=== PATIENT | male | born 1940 | race Caucasian/White ===

== ENCOUNTER 2017-09-15 18:30 | Inpatient (IN) | payer MEDICARE, OTHER ==
--- NOTE | 2017-09-15 19:49 | ED Physician Chart ---
ED Chief Complaint/HPI - Patient Information Date Seen:: 09/15/17 Time Seen:: 18:35 Chief Complaint:: Agitation History of Present Illness:: onset x 2 days of agitation and hostile behavior; no report of trauma, SIs, H/As , S/T, neck pain C/P, SOB, Abd. Pain, A/N/V/D/C, fever, chills, or urinary s/s Allergies:: Allergies Allergy/AdvReac Type Severity Reaction Status Date / Time No Known Allergies Allergy Verified 09/15/17 18:36 Vitals:: Vital Signs - 8 hr 09/15/17 18:36 Temp 97.4 F HR 81 RR 18 BP 130/60 O2 Sat % 100 Historian:: Patient, EMS Review:: Nurse's Note Reviewed, Old Chart Reviewed, EMS run form Reviewed ED Review of Systems - Review of Systems General/Constitutional: No fever, No chills, No weight loss, No weakness, No diaphoresis, No edema, No loss of appetite Skin: No skin lesions, No rash, No bruising Head: No headache, No light-headedness Eyes: No loss of vision, No pain, No diplopia ENT: No earache, No nasal drainage, No sore throat, No tinnitus Neck: No neck pain, No swelling, No thyromegaly, No stiffness, No mass noted Cardio Vascular: No chest pain, No palpitations, No PND, No orthopnea, No edema Pulmonary: No SOB, No cough, No sputum, No wheezing GI: No nausea, No vomiting, No diarrhea, No pain, No melena, No hematochezia, No constipation, No hematemesis G/U: No dysuria, No frequency, No hematuria Musculoskeletal: No bone or joint pain, No back pain, No muscle pain Endocrine: No polyuria, No polydipsia Psychiatric: Prior psych history, No depression, No suicidal ideation, No homicidal ideation, No auditory hallucination, No visual hallucination Hematopoietic: No bruising, No lymphadenopathy Allergic/Immuno: No urticaria, No angioedema Neurological: No syncope, Focal symptoms, No weakness, No paresthesia, No headache, No seizure, No dizziness, No confusion, No vertigo ED Past Medical History - Past Medical History Obtainable: Yes Past Medical History: HTN, CAD, CVA/TIA, Dyslipidemia Family History: HTN Social History: Non Smoker, No Alcohol, No Drug Use, Single, Care Facility Surgical History: None Psychiatricy History: Bipolar Medication: Reviewed Family Medical History - Family Member Mother History Unknown: Yes ED Physical Exam - Physical Examination General/Constitutional: Awake, Well-developed, well-nourished, Alert, No distress, GCS 15, Non-toxic appearing, Ambulatory Head: Atraumatic Eyes: Lids, conjuctiva normal, PERRL, EOMI Skin: Nl inspection, No rash, No skin lesions, No ecchymosis, Well hydrated, No lymphadenopathy ENMT: External ears, nose nl, TM canals nl, Nasal exam nl, Lips, teeth, gums nl , Oropharynx nl, Tonsils nl Neck: Nontender, Full ROM w/o pain, No JVD, No nuchal rigidity, No bruit, No mass, No stridor Respiratory: Nl effort/Exclusion, Clear to Auscultation, No Wheeze/Rhonchi/Rales Cardio Vascular: RRR, No murmur, gallop, rubs, NL S1 S2, Carotid/Femoral/Distal pulses equal bilaterally GI: No tenderness/rebounding/guarding, No organomegaly, No hernia, Normal BS's, Nondistended, No mass/bruits, No McBurney tenderness : No CVA tenderness Extremities: No tenderness or effusion, Full ROM, normal strength in all extremities, No edema, Normal digits & nails Neuro/Psych: Alert/oriented, DTR's symmetric, Normal sensory exam, Normal motor strength, Judgement/insight normal, Mood normal, Normal gait, No focal deficits Other Neuro/Psych comments:: + Psychomotor Agitation; Mood/Affect; Labile; no SIs Misc: Normal back, No paraspinal tenderness ED Labs/Radiology/EKG Results - Lab Results Comments:: unremarkable - EKG Interpretations EKG Time:: 19:41 Rate & Rhythm: 86; NSR Comments:: non-specific st-t changes ED Septic Shock - . Is Septic Shock (SBP<90, OR Lactate>4 mmol\L) present?: No - <6hrs of presentation: Vital Signs: Vital Signs - 8 hr 09/15/17 18:36 Temp 97.4 F HR 81 RR 18 BP 130/60 O2 Sat % 100 ED Reassessment (Disposition) - Reassessment Reassessment Condition:: Improved - Diagnosis Diagnosis:: Medical Clearance; Agitation; Bipolar Disorder; Psychosis - Aftercare/Follow up Instructions Aftercare/Follow-Up Instructions:: Counseled pt regarding lab results/diagnosis & need follow up, Counseled pt & family regarding lab results/diagnosis & need follow up - Patient Disposition Discharge/Transfer:: Acute Care w/in this hosp Admitted to:: [facility] Condition at Disposition:: Stable, Improved ED Discharge Plan - Patient Disposition
[2017-09-15 20:05] LABS: % BASOPHILS 0.9 % (0.0-2.0); % EOSINOPHILS 2.6 % (0.0-5.0); % LYMPHOCYTES 35.2 % (20.0-50.0); % MONOCYTES 5.3 % (2.0-10.0); BASOPHILE ABSOLUTE 0.1 Th/cumm (0-0.2); EOSINOPHILE ABSOLUTE 0.3 Th/cmm (0.1-0.4); HEMATOCRIT 40.1 % (41.0-60); HEMOGLOBIN 13.5 gm/dL (12-16); MEAN CELL VOLUME 95.2 fl (80-99); MEAN CORPUSCULAR HGB CONC 33.6 pg (28.0-36.0); MEAN PLATELET VOLUME 7.7 fl; MONOCYTE ABSOLUTE 0.6 Th/cmm (0.3-1.0); NEUTROPHILE ABSOLUTE 6.4 Th/cmm (1.8-8.0); PLATELET COUNT 246 Th/cmm (150-400); RED BLOOD COUNT 4.21 Mil/cmm (3.80-5.80); RED CELL DISTRIBUTION WIDTH 13.5 % (11.5-20.0); WHITE BLOOD COUNT 11.4 Th/cmm (4.8-10.8)
[2017-09-15 20:17] LABS: ACETAMINOPHEN < 10.0 ug/mL (10.0-30.0); ALB/GLOB RATIO 1.1 (1.0-1.8); ALBUMIN 3.9 gm/dL (4.2-5.5); ALKALINE PHOSPHATASE 155 U/L (34-104); ANION GAP 11.5 (7.0-16.0); BILIRUBIN,TOTAL 0.5 mg/dL (0.3-1.0); BUN - UREA NITROGEN 23 mg/dL (7-25); CALCIUM SERUM 9.9 mg/dL (8.6-10.3); CHLORIDE 103 mEq/L (98-107); CHOLESTEROL 160 mg/dL (<200); CREATININE - SERUM 1.2 mg/dL (0.7-1.3); GLUCOSE 153 mg/dL (70-105); HDL -HIGH DENSITY LIPOPROTEIN 42 mg/dL (23-92); POTASSIUM SERUM 4.5 mEq/L (3.5-5.1); SALICYLATES (ASPIRIN) < 25.0 mg/L (30.0-100.0); SGOT 18 U/L (13-39); SGPT/ALT 17 U/L (7-52); SODIUM SERUM 136 mEq/L (136-145); TOTAL PROTEIN,SERUM 7.4 gm/dL (6.0-8.3); TRIGLYCERIDES 111 mg/dL (<150)
[2017-09-15 21:09] VITALS: BP 130/60
[2017-09-15] MEDS ORDERED: Maalox 30 mL Cup PO PRN (21:10)
[2017-09-15] MEDS ORDERED: Magnesium Hydroxide (MOM) 30 mL UDC PO PRN (21:10)
[2017-09-16 00:25] LABS: URINE MICROSCOPIC INDICATED? YES; URINE SOURCE CLEAN C
[2017-09-16 01:31] LABS: URINE BILIRUBIN NEGATIVE (NEGATIVE); URINE BLOOD NEGATIVE (NEGATIVE); URINE GLUCOSE (UA) 100 mg/dL (NEGATIVE); URINE KETONE NEGATIVE (NEGATIVE); URINE LEUKOCYTE ESTERASE SMALL (NEGATIVE); URINE NITRATE NEGATIVE (NEGATIVE); URINE PH 7.5 (4.6 - 8.0); URINE PROTEIN NEGATIVE (NEGATIVE); URINE UROBILINOGEN 0.2 E.U./dL (0.2 - 1.0)
[2017-09-16 01:45] LABS: URINE CLARITY CLEAR (CLEAR); URINE COLOR YELLOW
[2017-09-16 01:47] LABS: AMPHETAMINE URINE NEGATIVE (NEGATIVE); BARBITURATES URINE NEGATIVE (NEGATIVE); BENZODIAZEPINES QUAL URINE NEGATIVE (NEGATIVE); CANNABINOID THC NEGATIVE (NEGATIVE); COCAINE METABOLITE QUAL URINE NEGATIVE (NEGATIVE); METHADONE URINE NEGATIVE (NEGATIVE); METHAMPHETAMINES QUAL URINE NEGATIVE (NEGATIVE); OPIATES (MORPHINE) QUAL. URINE NEGATIVE (NEGATIVE); PHENCYCLIDINE (PCP) URINE NEGATIVE (NEGATIVE); TRICYCLICS (TCA) QUAL. URINE NEGATIVE (NEGATIVE)
[2017-09-16 01:51] LABS: URINE EPITHELIAL CELLS OCCASIONAL /lpf (FEW); URINE RBC 0-2 /hpf (0-5)
[2017-09-16 01:52] LABS: URINE BACTERIA OCCASIONAL /hpf (NONE SEEN)
[2017-09-16] MEDS ORDERED: Hydrocodone/APAP 5mg/325mg Tab PO PRN (05:40)
[2017-09-16] MEDS ORDERED: Magnesium Hydroxide (MOM) 30 mL UDC PO PRN (05:40)
[2017-09-16] MEDS ORDERED: Polyvinyl Alcohol Ophth Soln 15 mL Bottle EACH EYE PRN (05:50)
[2017-09-16] MEDS: INSULIN ASPART SLIDING SCALE 100 UNITS/ML UNIT SUBQ SCH ×4 (06:46→21:56)
[2017-09-16] MEDS ORDERED: Non-Formulary Item 1 EA (Amino Acids/Protein Hydrolys [Pro-Stat Sugar Free Liquid] 30 ML) PO SCH (09:00)
[2017-09-16] MEDS: Multivitamin Tab PO SCH (09:05)
[2017-09-16] MEDS: Insulin Detemir 100 units/mL 10mL Vial SUBQ SCH (09:30)
[2017-09-16] MEDS ORDERED: ACETAMINOPHEN 500 MG PO PRN (13:34)
[2017-09-16] MEDS ORDERED: INSULIN ASPART, RECOMBINANT 100 UNITS/ML SUBQ SCH (15:30)
--- NOTE | 2017-09-16 16:35 | Internal Medicine Prog Note ---
Internal Medicine Subjective - Subjective Service Date: 09/16/17 ([facility] [id number]) Internal Medicine Objective - Results Result Diagrams: 09/15/17 19:55 09/15/17 19:55 Recent Labs: Laboratory Last Values WBC 11.4 Th/cmm (4.8-10.8) H 09/15/17 19:55 RBC 4.21 Mil/cmm (3.80-5.80) 09/15/17 19:55 Hgb 13.5 gm/dL (12-16) 09/15/17 19:55 Hct 40.1 % (41.0-60) L 09/15/17 19:55 MCV 95.2 fl (80-99) 09/15/17 19:55 MCH 32.0 pg (27.0-31.0) H 09/15/17 19:55 MCHC Differential 33.6 pg (28.0-36.0) 09/15/17 19:55 RDW 13.5 % (11.5-20.0) 09/15/17 19:55 Plt Count 246 Th/cmm (150-400) 09/15/17 19:55 MPV 7.7 fl 09/15/17 19:55 Neutrophils % 56.0 % (40.0-80.0) 09/15/17 19:55 Lymphocytes % 35.2 % (20.0-50.0) 09/15/17 19:55 Monocytes % 5.3 % (2.0-10.0) 09/15/17 19:55 Eosinophils % 2.6 % (0.0-5.0) 09/15/17 19:55 Basophils % 0.9 % (0.0-2.0) 09/15/17 19:55 Sodium 136 mEq/L (136-145) 09/15/17 19:55 Potassium 4.5 mEq/L (3.5-5.1) 09/15/17 19:55 Chloride 103 mEq/L (98-107) 09/15/17 19:55 Carbon Dioxide 26.0 mEq/L (21.0-31.0) 09/15/17 19:55 Anion Gap 11.5 (7.0-16.0) 09/15/17 19:55 BUN 23 mg/dL (7-25) 09/15/17 19:55 Creatinine 1.2 mg/dL (0.7-1.3) 09/15/17 19:55 Est GFR ( Amer) TNP 09/15/17 19:55 Est GFR (Non-Af Amer) TNP 09/15/17 19:55 BUN/Creatinine Ratio 19.2 09/15/17 19:55 Glucose 153 mg/dL (70-105) H 09/15/17 19:55 Calcium 9.9 mg/dL (8.6-10.3) 09/15/17 19:55 Total Bilirubin 0.5 mg/dL (0.3-1.0) 09/15/17 19:55 AST 18 U/L (13-39) 09/15/17 19:55 ALT 17 U/L (7-52) 09/15/17 19:55 Alkaline Phosphatase 155 U/L (34-104) H 09/15/17 19:55 Total Protein 7.4 gm/dL (6.0-8.3) 09/15/17 19:55 Albumin 3.9 gm/dL (4.2-5.5) L 09/15/17 19:55 Globulin 3.5 gm/dL 09/15/17 19:55 Albumin/Globulin Ratio 1.1 (1.0-1.8) 09/15/17 19:55 Triglycerides 111 mg/dL (<150) 09/15/17 19:55 Cholesterol 160 mg/dL (<200) 09/15/17 19:55 LDL Cholesterol Direct 116 mg/dL (75-193) 09/15/17 19:55 HDL Cholesterol 42 mg/dL (23-92) 09/15/17 19:55 TSH 11.98 uIU/ml (0.34-5.60) H 09/15/17 19:55 Urine Source CLEAN C 09/16/17 00:15 Urine Color YELLOW 09/16/17 00:15 Urine Clarity CLEAR (CLEAR) 09/16/17 00:15 Urine pH 7.5 (4.6 - 8.0) 09/16/17 00:15 Ur Specific [place] 1.010 (1.005-1.030) 09/16/17 00:15 Urine Protein NEGATIVE mg/dL (NEGATIVE) 09/16/17 00:15 Urine Glucose (UA) 100 mg/dL (NEGATIVE) H 09/16/17 00:15 Urine Ketones NEGATIVE mg/dL (NEGATIVE) 09/16/17 00:15 Urine Blood NEGATIVE (NEGATIVE) 09/16/17 00:15 Urine Nitrate NEGATIVE (NEGATIVE) 09/16/17 00:15 Urine Bilirubin NEGATIVE (NEGATIVE) 09/16/17 00:15 Urine Urobilinogen 0.2 E.U./dL (0.2 - 1.0) 09/16/17 00:15 Ur Leukocyte Esterase SMALL (NEGATIVE) H 09/16/17 00:15 Urine RBC 0-2 /hpf (0-5) H 09/16/17 00:15 Urine WBC 2-5 /hpf (0-5) 09/16/17 00:15 Ur Epithelial Cells OCCASIONAL /lpf (FEW) 09/16/17 00:15 Urine Bacteria OCCASIONAL /hpf (NONE SEEN) 09/16/17 00:15 Salicylates < 25.0 mg/L (30.0-100.0) L 09/15/17 19:55 Urine Opiates Screen NEGATIVE (NEGATIVE) 09/16/17 00:15 Urine Methadone Screen NEGATIVE (NEGATIVE) 09/16/17 00:15 Acetaminophen < 10.0 ug/mL (10.0-30.0) L 09/15/17 19:55 Ur Barbiturates Screen NEGATIVE (NEGATIVE) 09/16/17 00:15 Ur Tricyclics Screen NEGATIVE (NEGATIVE) 09/16/17 00:15 Ur Phencyclidine Scrn NEGATIVE (NEGATIVE) 09/16/17 00:15 Amphetamines Screen NEGATIVE (NEGATIVE) 09/16/17 00:15 U Methamphetamines Scrn NEGATIVE (NEGATIVE) 09/16/17 00:15 U Benzodiazepines Scrn NEGATIVE (NEGATIVE) 09/16/17 00:15 U Cocaine Metab Screen NEGATIVE (NEGATIVE) 09/16/17 00:15 U Cannabinoids Screen NEGATIVE (NEGATIVE) 09/16/17 00:15 Ethyl Alcohol < 10 mg/dL (0-10) 09/15/17 19:55 - Physical Exam Vitals and I&O: Vital Signs Temp 98.2 F 09/16/17 15:51 Pulse 85 09/16/17 15:51 Resp 17 09/16/17 15:51 BP 93/49 09/16/17 15:51 Pulse Ox 97 09/16/17 15:51 Intake & Output 09/15/17 09/16/17 09/16/17 18:59 06:59 18:59 Intake Total 240 Balance 240 Intake: Oral 240 Other: # Voids 1 Active Medications: Current Medications Acetaminophen (Tylenol) 650 mg PO Q4HR PRN PRN Reason: Mild Pain / Temp above 100 Stop: 11/14/17 21:09 Acetaminophen/Hydrocodone Bitart ([place] 5mg/325mg) 1 tab PO Q4H PRN PRN Reason: MOD/SEVERE PAIN Stop: 11/15/17 05:39 Al Hydrox/Mg Hydrox/Simethicone (Maalox) 30 ml PO Q4HR PRN PRN Reason: GI DISTRESS Stop: 11/14/17 21:09 Artificial Tears (Artificial Tears Ophth Soln) 1 drop EACH EYE TID PRN PRN Reason: DRYNESS Stop: 11/15/17 05:49 Ascorbic Acid (Vitamin C) 500 mg PO BID [facility] Stop: 11/15/17 08:59 Last Admin: 09/16/17 09:06 Dose: 500 mg Bisacodyl (Dulcolax 10 Mg Supp) 10 mg RC DAILY PRN PRN Reason: IF MOM IS INEFFECTIVE Stop: 11/15/17 13:33 Docusate Sodium (Colace) 100 mg PO BID [facility] Stop: 11/15/17 08:59 Last Admin: 09/16/17 09:06 Dose: 100 mg Glipizide (Glucotrol) 5 mg PO DAILY [facility] Stop: 11/15/17 08:59 Last Admin: 09/16/17 09:05 Dose: 5 mg Insulin Aspart (Novolog Insulin Sliding Scale) 0 units SUBQ ACHS [facility] PRN Reason: Protocol Stop: 11/15/17 07:29 Last Admin: 09/16/17 12:09 Dose: 6 units Insulin Aspart (Novolog) 10 units SUBQ BID [facility] PRN Reason: Protocol Stop: 11/15/17 15:29 Insulin Detemir (Levemir Insulin) 20 units SUBQ DAILY [facility] PRN Reason: Protocol Stop: 11/15/17 08:59 Last Admin: 09/16/17 09:30 Dose: 20 ud Lorazepam (Ativan) 0.5 mg PO Q4HR PRN; Protocol PRN Reason: Anxiety/agitation Stop: 10/15/17 21:09 Magnesium Hydroxide (Milk Of Magnesia) 30 ml PO HS PRN PRN Reason: Constipation Magnesium Hydroxide (Milk Of Magnesia) 30 ml PO DAILY PRN PRN Reason: BOWEL MAINTENANCE Stop: 11/15/17 05:39 Metformin HCl (Glucophage) 500 mg PO BID [facility] Stop: 11/15/17 08:59 Last Admin: 09/16/17 09:06 Dose: 500 mg Multivitamins/Vitamin C (Theragran) 1 tab PO DAILY [facility] Stop: 11/15/17 08:59 Last Admin: 09/16/17 09:05 Dose: 1 tab Rivaroxaban (Xarelto) 20 mg PO DAILY [facility] Stop: 11/15/17 08:59 Last Admin: 09/16/17 09:06 Dose: 20 mg Zolpidem Tartrate (Ambien) 5 mg PO HS PRN PRN Reason: Insomnia Stop: 11/14/17 21:09
[2017-09-16] MEDS: INSULIN ASPART, RECOMBINANT 100 UNITS/ML SUBQ SCH (17:37)
--- NOTE | 2017-09-16 19:02 | History & Physical ---
ADMIT DATE: 09/16/2017 DICTATED FOR: Bao Vogel DO CHIEF COMPLAINT: Agitation. HISTORY OF PRESENT ILLNESS: This is a 77-year-old male who is a custodial resident who is now admitted to the Geropsych Unit due to a 2-day history of agitation, hostile behavior towards nursing staff. PAST MEDICAL HISTORY: Hypertension, CAD, history of CVA, dyslipidemia. FAMILY HISTORY: Noncontributory. SOCIAL HISTORY: The patient is a custodial resident, requiring 24-hour nursing care. SURGICAL HISTORY: Unknown. MEDICATIONS: Please see medication reconciliation. REVIEW OF SYSTEMS: GENERAL: Denies any fevers or any chills. CARDIOVASCULAR: Denies chest pain. RESPIRATORY: Denies shortness of breath. GASTROINTESTINAL: Denies nausea, vomiting, abdominal pain. GENITOURINARY: Denies increased frequency or dysuria. NEUROLOGIC: No headaches, seizures or syncope. All other systems are reviewed and are negative. PHYSICAL EXAMINATION: GENERAL: The patient is well developed, well nourished, no acute distress. VITAL SIGNS: Temperature 99.2, heart rate 85, blood pressure 93/49, respirations 17, O2 97%. HEENT: Head normocephalic, atraumatic. NECK: Supple. No mass. LUNGS: Clear bilaterally. CARDIOVASCULAR: Regular rate and rhythm. ABDOMEN: Soft, nontender. LABORATORY DATA: WBC 11.4, H and H 13.5 and 40.1, platelet of 246. Sodium 136, potassium 4.5, chloride 103, BUN 22, creatinine 1.2. The patient had a urinalysis done, positive for UTI. ASSESSMENT: Acute UTI, hypertension, CAD, history of TIA. PLAN: We will start the patient on Levaquin 500 mg p.o. for his UTI. We will monitor the patient's glucose level. We will continue to monitor this patient. JOB# [id number]
[2017-09-16 20:06] LABS: A1C % 8.8 % (4.0-6.0)
--- NOTE | 2017-09-17 05:57 | Psychosocial Evaluation ---
DATE OF SERVICE: 09/16/2017 IDENTIFYING DATA: The patient is a 77-year-old male, resident of [facility]. Information obtained directly interviewing the patient as well as reviewing the admission papers and they are reliable. JUSTIFICATION FOR HOSPITALIZATION: The patient is admitted on a voluntary basis in view of his agitation and confusion. CHIEF COMPLAINT: "I do not know why they have to bring me in here." HISTORY OF PRESENT ILLNESS: This is the first psychiatric hospitalization to [facility] for this patient, who has been getting easily agitated and when I am asking the questions, the patient has been reported to have been this way at the [facility] and could not be taken care of at a lower level of care and hence patient has to be transferred over here. We tried to interview the patient to get more information, but the patient is not providing any and has been getting easily frustrated. PAST PSYCHIATRIC HISTORY: Details are not known. MEDICAL HISTORY AND PHYSICAL EXAMINATION: Requested to be done by Dr. Vogel. SUBSTANCE ABUSE HISTORY: None. ABUSE HISTORY: None. PROBLEMS WITH ALCOHOL: None reported. MENTAL STATUS EXAMINATION: The patient is a 77-year-old, looking his stated age, superficially cooperative. Eye contact is poor. Mood is irritable. Affect is constricted. Insight and judgment at this time are noted to be still impaired. Impulse control is very poor. Coping skills are noted to be very poor. The patient is getting easily agitated. The patient has paranoia, but denies any command hallucinations. The patient's short term as well as long-term memory are noted to be impaired at this time. The patient has been having difficult time to cope with the stress. The patient's behavior is a danger to self and others. DIAGNOSTIC IMPRESSION: AXIS I: Dementia and behavioral disturbances, secondary trait. IMMEDIATE TREATMENT PLAN: The patient is going to be continued on Ativan and Seroquel. ESTIMATED LENGTH OF STAY: Three to five days. DISCHARGE CRITERIA: When he no longer a threat to self or others and be able to cope up with the stress. JOB# [id number]
[2017-09-17] MEDS: INSULIN ASPART SLIDING SCALE 100 UNITS/ML UNIT SUBQ SCH ×4 (06:38→20:42)
[2017-09-17] MEDS: Multivitamin Tab PO SCH (08:57)
[2017-09-17] MEDS: INSULIN ASPART, RECOMBINANT 100 UNITS/ML SUBQ SCH ×2 (09:30→17:00)
[2017-09-17] MEDS: Insulin Detemir 100 units/mL 10mL Vial SUBQ SCH (09:30)
--- NOTE | 2017-09-17 13:55 | Internal Medicine Prog Note ---
Internal Medicine Subjective - Subjective Service Date: 09/17/17 Patient seen and examined:: with staff Patient is:: awake, verbal Per staff patient has:: tolerating meds Internal Medicine Objective - Results Result Diagrams: 09/15/17 19:55 09/15/17 19:55 Recent Labs: Laboratory Last Values WBC 11.4 Th/cmm (4.8-10.8) H 09/15/17 19:55 RBC 4.21 Mil/cmm (3.80-5.80) 09/15/17 19:55 Hgb 13.5 gm/dL (12-16) 09/15/17 19:55 Hct 40.1 % (41.0-60) L 09/15/17 19:55 MCV 95.2 fl (80-99) 09/15/17 19:55 MCH 32.0 pg (27.0-31.0) H 09/15/17 19:55 MCHC Differential 33.6 pg (28.0-36.0) 09/15/17 19:55 RDW 13.5 % (11.5-20.0) 09/15/17 19:55 Plt Count 246 Th/cmm (150-400) 09/15/17 19:55 MPV 7.7 fl 09/15/17 19:55 Neutrophils % 56.0 % (40.0-80.0) 09/15/17 19:55 Lymphocytes % 35.2 % (20.0-50.0) 09/15/17 19:55 Monocytes % 5.3 % (2.0-10.0) 09/15/17 19:55 Eosinophils % 2.6 % (0.0-5.0) 09/15/17 19:55 Basophils % 0.9 % (0.0-2.0) 09/15/17 19:55 Sodium 136 mEq/L (136-145) 09/15/17 19:55 Potassium 4.5 mEq/L (3.5-5.1) 09/15/17 19:55 Chloride 103 mEq/L (98-107) 09/15/17 19:55 Carbon Dioxide 26.0 mEq/L (21.0-31.0) 09/15/17 19:55 Anion Gap 11.5 (7.0-16.0) 09/15/17 19:55 BUN 23 mg/dL (7-25) 09/15/17 19:55 Creatinine 1.2 mg/dL (0.7-1.3) 09/15/17 19:55 Est GFR ( Amer) TNP 09/15/17 19:55 Est GFR (Non-Af Amer) TNP 09/15/17 19:55 BUN/Creatinine Ratio 19.2 09/15/17 19:55 Glucose 153 mg/dL (70-105) H 09/15/17 19:55 Hemoglobin A1c % 8.8 % (4.0-6.0) H 09/15/17 19:55 Calcium 9.9 mg/dL (8.6-10.3) 09/15/17 19:55 Total Bilirubin 0.5 mg/dL (0.3-1.0) 09/15/17 19:55 AST 18 U/L (13-39) 09/15/17 19:55 ALT 17 U/L (7-52) 09/15/17 19:55 Alkaline Phosphatase 155 U/L (34-104) H 09/15/17 19:55 Total Protein 7.4 gm/dL (6.0-8.3) 09/15/17 19:55 Albumin 3.9 gm/dL (4.2-5.5) L 09/15/17 19:55 Globulin 3.5 gm/dL 09/15/17 19:55 Albumin/Globulin Ratio 1.1 (1.0-1.8) 09/15/17 19:55 Triglycerides 111 mg/dL (<150) 09/15/17 19:55 Cholesterol 160 mg/dL (<200) 09/15/17 19:55 LDL Cholesterol Direct 116 mg/dL (75-193) 09/15/17 19:55 HDL Cholesterol 42 mg/dL (23-92) 09/15/17 19:55 TSH 11.98 uIU/ml (0.34-5.60) H 09/15/17 19:55 Urine Source CLEAN C 09/16/17 00:15 Urine Color YELLOW 09/16/17 00:15 Urine Clarity CLEAR (CLEAR) 09/16/17 00:15 Urine pH 7.5 (4.6 - 8.0) 09/16/17 00:15 Ur Specific [place] 1.010 (1.005-1.030) 09/16/17 00:15 Urine Protein NEGATIVE mg/dL (NEGATIVE) 09/16/17 00:15 Urine Glucose (UA) 100 mg/dL (NEGATIVE) H 09/16/17 00:15 Urine Ketones NEGATIVE mg/dL (NEGATIVE) 09/16/17 00:15 Urine Blood NEGATIVE (NEGATIVE) 09/16/17 00:15 Urine Nitrate NEGATIVE (NEGATIVE) 09/16/17 00:15 Urine Bilirubin NEGATIVE (NEGATIVE) 09/16/17 00:15 Urine Urobilinogen 0.2 E.U./dL (0.2 - 1.0) 09/16/17 00:15 Ur Leukocyte Esterase SMALL (NEGATIVE) H 09/16/17 00:15 Urine RBC 0-2 /hpf (0-5) H 09/16/17 00:15 Urine WBC 2-5 /hpf (0-5) 09/16/17 00:15 Ur Epithelial Cells OCCASIONAL /lpf (FEW) 09/16/17 00:15 Urine Bacteria OCCASIONAL /hpf (NONE SEEN) 09/16/17 00:15 Salicylates < 25.0 mg/L (30.0-100.0) L 09/15/17 19:55 Urine Opiates Screen NEGATIVE (NEGATIVE) 09/16/17 00:15 Urine Methadone Screen NEGATIVE (NEGATIVE) 09/16/17 00:15 Acetaminophen < 10.0 ug/mL (10.0-30.0) L 09/15/17 19:55 Ur Barbiturates Screen NEGATIVE (NEGATIVE) 09/16/17 00:15 Ur Tricyclics Screen NEGATIVE (NEGATIVE) 09/16/17 00:15 Ur Phencyclidine Scrn NEGATIVE (NEGATIVE) 09/16/17 00:15 Amphetamines Screen NEGATIVE (NEGATIVE) 09/16/17 00:15 U Methamphetamines Scrn NEGATIVE (NEGATIVE) 09/16/17 00:15 U Benzodiazepines Scrn NEGATIVE (NEGATIVE) 09/16/17 00:15 U Cocaine Metab Screen NEGATIVE (NEGATIVE) 09/16/17 00:15 U Cannabinoids Screen NEGATIVE (NEGATIVE) 09/16/17 00:15 Ethyl Alcohol < 10 mg/dL (0-10) 09/15/17 19:55 RPR NONREACTIVE (NONREACTIVE) 09/15/17 19:55 - Physical Exam Vitals and I&O: Vital Signs Temp 98.4 F 09/17/17 05:49 Pulse 89 09/17/17 05:49 Resp 20 09/17/17 05:49 BP 115/60 09/17/17 05:49 Pulse Ox 97 09/17/17 05:49 Intake & Output 09/16/17 09/17/17 09/17/17 18:59 06:59 18:59 Intake Total 960 760 Balance 960 760 Intake: Oral 960 760 Other: # Voids 3 1 # Bowel Movements 0 Stool Characteristics Soft Soft Active Medications: Current Medications Acetaminophen (Tylenol) 650 mg PO Q4HR PRN PRN Reason: Mild Pain / Temp above 100 Stop: 11/14/17 21:09 Acetaminophen/Hydrocodone Bitart ([place] [address] 5mg/325mg) 1 tab PO Q4H PRN PRN Reason: MOD/SEVERE PAIN Stop: 11/15/17 05:39 Al Hydrox/Mg Hydrox/Simethicone (Maalox) 30 ml PO Q4HR PRN PRN Reason: GI DISTRESS Stop: 11/14/17 21:09 Artificial Tears (Artificial Tears Ophth Soln) 1 drop EACH EYE TID PRN PRN Reason: DRYNESS Stop: 11/15/17 05:49 Ascorbic Acid (Vitamin C) 500 mg PO BID [facility] Stop: 11/15/17 08:59 Last Admin: 09/17/17 08:57 Dose: 500 mg Bisacodyl (Dulcolax 10 Mg Supp) 10 mg RC DAILY PRN PRN Reason: IF MOM IS INEFFECTIVE Stop: 11/15/17 13:33 Docusate Sodium (Colace) 100 mg PO BID [facility] Stop: 11/15/17 08:59 Last Admin: 09/17/17 08:57 Dose: 100 mg Glipizide (Glucotrol) 5 mg PO DAILY [facility] Stop: 11/15/17 08:59 Last Admin: 09/17/17 08:57 Dose: 5 mg Insulin Aspart (Novolog Insulin Sliding Scale) 0 units SUBQ ACHS [facility] PRN Reason: Protocol Stop: 11/15/17 07:29 Last Admin: 09/17/17 12:10 Dose: Not Given Insulin Aspart (Novolog) 10 units SUBQ BID [facility] PRN Reason: Protocol Stop: 11/15/17 15:29 Last Admin: 03/30/18 09:30 Dose: 10 ud Insulin Detemir (Levemir Insulin) 20 units SUBQ DAILY [facility] PRN Reason: Protocol Stop: 11/15/17 08:59 Last Admin: 09/17/17 09:30 Dose: 20 ud Levofloxacin (Levaquin) 500 mg PO DAILY [facility] Stop: 11/16/17 08:59 Last Admin: 09/17/17 08:57 Dose: 500 mg Lorazepam (Ativan) 0.5 mg PO Q4HR PRN; Protocol PRN Reason: Anxiety/agitation Stop: 10/15/17 21:09 Magnesium Hydroxide (Milk Of Magnesia) 30 ml PO HS PRN PRN Reason: Constipation Magnesium Hydroxide (Milk Of Magnesia) 30 ml PO DAILY PRN PRN Reason: BOWEL MAINTENANCE Stop: 11/15/17 05:39 Metformin HCl (Glucophage) 500 mg PO BID [facility] Stop: 11/15/17 08:59 Last Admin: 09/17/17 08:57 Dose: 500 mg Multivitamins/Vitamin C (Theragran) 1 tab PO DAILY [facility] Stop: 11/15/17 08:59 Last Admin: 09/17/17 08:57 Dose: 1 tab Rivaroxaban (Xarelto) 20 mg PO DAILY [facility] Stop: 11/15/17 08:59 Last Admin: 09/17/17 08:57 Dose: 20 mg Zolpidem Tartrate (Ambien) 5 mg PO HS PRN PRN Reason: Insomnia Stop: 11/14/17 21:09 General: alert HEENT: NC/AT, PERRLA Neck: Supple Lungs: CTAB Cardiovascular: RRR, Normal S1, Normal S2, without murmur Neurological: alert Internal Medicine Assmt/Plan - Assessment Assessment: acute uti htn cad hx tia - Plan Plan: continue po levaquin monitor bp continue current plan of care
[2017-09-18] MEDS: INSULIN ASPART SLIDING SCALE 100 UNITS/ML UNIT SUBQ SCH ×4 (06:40→21:04)
--- NOTE | 2017-09-18 09:05 | Progress Notes ---
DATE: 09/17/2017 PSYCHIATRIC PROGRESS NOTE SUBJECTIVE: Staff was spoken to. The patient is interviewed. Mood is noted to be irritable. Affect is constricted. The patient is reported to be sexually preoccupied and has been asking one of the female staff members to go home with him. The patient has no insight into his illness. Coping skills are noted to be very poor. Sleep and appetite are also noted to be very poor. The patient is getting easily irritable and paranoid. The patient has no clue that he is in the hospital. ASSESSMENT: The patient is still impulsive and psychotic. PLAN: To continue the patient with Seroquel, which is going to be increased to 25 mg tonight and the patient is going to be followed up with the supportive therapy. Please note that the patient is not ready to be discharged to a lower level of care at this time. JOB# [id number]
[2017-09-18] MEDS: Insulin Detemir 100 units/mL 10mL Vial SUBQ SCH (09:29)
[2017-09-18] MEDS: Multivitamin Tab PO SCH (09:30)
[2017-09-18] MEDS: INSULIN ASPART, RECOMBINANT 100 UNITS/ML SUBQ SCH ×2 (09:38→16:57)
--- NOTE | 2017-09-18 14:49 | Internal Medicine Prog Note ---
Internal Medicine Subjective - Subjective Patient seen and examined:: with staff, chart reviewed Patient is:: awake, verbal Per staff patient has:: no adverse event, no episodes of fall, noncompliant, tolerating meds Internal Medicine Objective - Results Result Diagrams: 09/15/17 19:55 09/15/17 19:55 Recent Labs: Laboratory Last Values WBC 11.4 Th/cmm (4.8-10.8) H 09/15/17 19:55 RBC 4.21 Mil/cmm (3.80-5.80) 09/15/17 19:55 Hgb 13.5 gm/dL (12-16) 09/15/17 19:55 Hct 40.1 % (41.0-60) L 09/15/17 19:55 MCV 95.2 fl (80-99) 09/15/17 19:55 MCH 32.0 pg (27.0-31.0) H 09/15/17 19:55 MCHC Differential 33.6 pg (28.0-36.0) 09/15/17 19:55 RDW 13.5 % (11.5-20.0) 09/15/17 19:55 Plt Count 246 Th/cmm (150-400) 09/15/17 19:55 MPV 7.7 fl 09/15/17 19:55 Neutrophils % 56.0 % (40.0-80.0) 09/15/17 19:55 Lymphocytes % 35.2 % (20.0-50.0) 09/15/17 19:55 Monocytes % 5.3 % (2.0-10.0) 09/15/17 19:55 Eosinophils % 2.6 % (0.0-5.0) 09/15/17 19:55 Basophils % 0.9 % (0.0-2.0) 09/15/17 19:55 Sodium 136 mEq/L (136-145) 09/15/17 19:55 Potassium 4.5 mEq/L (3.5-5.1) 09/15/17 19:55 Chloride 103 mEq/L (98-107) 09/15/17 19:55 Carbon Dioxide 26.0 mEq/L (21.0-31.0) 09/15/17 19:55 Anion Gap 11.5 (7.0-16.0) 09/15/17 19:55 BUN 23 mg/dL (7-25) 09/15/17 19:55 Creatinine 1.2 mg/dL (0.7-1.3) 09/15/17 19:55 Est GFR ( Amer) TNP 09/15/17 19:55 Est GFR (Non-Af Amer) TNP 09/15/17 19:55 BUN/Creatinine Ratio 19.2 09/15/17 19:55 Glucose 153 mg/dL (70-105) H 09/15/17 19:55 Hemoglobin A1c % 8.8 % (4.0-6.0) H 09/15/17 19:55 Calcium 9.9 mg/dL (8.6-10.3) 09/15/17 19:55 Total Bilirubin 0.5 mg/dL (0.3-1.0) 09/15/17 19:55 AST 18 U/L (13-39) 09/15/17 19:55 ALT 17 U/L (7-52) 09/15/17 19:55 Alkaline Phosphatase 155 U/L (34-104) H 09/15/17 19:55 Total Protein 7.4 gm/dL (6.0-8.3) 09/15/17 19:55 Albumin 3.9 gm/dL (4.2-5.5) L 09/15/17 19:55 Globulin 3.5 gm/dL 09/15/17 19:55 Albumin/Globulin Ratio 1.1 (1.0-1.8) 09/15/17 19:55 Triglycerides 111 mg/dL (<150) 09/15/17 19:55 Cholesterol 160 mg/dL (<200) 09/15/17 19:55 LDL Cholesterol Direct 116 mg/dL (75-193) 09/15/17 19:55 HDL Cholesterol 42 mg/dL (23-92) 09/15/17 19:55 TSH 11.98 uIU/ml (0.34-5.60) H 09/15/17 19:55 Urine Source CLEAN C 09/16/17 00:15 Urine Color YELLOW 09/16/17 00:15 Urine Clarity CLEAR (CLEAR) 09/16/17 00:15 Urine pH 7.5 (4.6 - 8.0) 09/16/17 00:15 Ur Specific [place] 1.010 (1.005-1.030) 09/16/17 00:15 Urine Protein NEGATIVE mg/dL (NEGATIVE) 09/16/17 00:15 Urine Glucose (UA) 100 mg/dL (NEGATIVE) H 09/16/17 00:15 Urine Ketones NEGATIVE mg/dL (NEGATIVE) 09/16/17 00:15 Urine Blood NEGATIVE (NEGATIVE) 09/16/17 00:15 Urine Nitrate NEGATIVE (NEGATIVE) 09/16/17 00:15 Urine Bilirubin NEGATIVE (NEGATIVE) 09/16/17 00:15 Urine Urobilinogen 0.2 E.U./dL (0.2 - 1.0) 09/16/17 00:15 Ur Leukocyte Esterase SMALL (NEGATIVE) H 09/16/17 00:15 Urine RBC 0-2 /hpf (0-5) H 09/16/17 00:15 Urine WBC 2-5 /hpf (0-5) 09/16/17 00:15 Ur Epithelial Cells OCCASIONAL /lpf (FEW) 09/16/17 00:15 Urine Bacteria OCCASIONAL /hpf (NONE SEEN) 09/16/17 00:15 Salicylates < 25.0 mg/L (30.0-100.0) L 09/15/17 19:55 Urine Opiates Screen NEGATIVE (NEGATIVE) 09/16/17 00:15 Urine Methadone Screen NEGATIVE (NEGATIVE) 09/16/17 00:15 Acetaminophen < 10.0 ug/mL (10.0-30.0) L 09/15/17 19:55 Ur Barbiturates Screen NEGATIVE (NEGATIVE) 09/16/17 00:15 Ur Tricyclics Screen NEGATIVE (NEGATIVE) 09/16/17 00:15 Ur Phencyclidine Scrn NEGATIVE (NEGATIVE) 09/16/17 00:15 Amphetamines Screen NEGATIVE (NEGATIVE) 09/16/17 00:15 U Methamphetamines Scrn NEGATIVE (NEGATIVE) 09/16/17 00:15 U Benzodiazepines Scrn NEGATIVE (NEGATIVE) 09/16/17 00:15 U Cocaine Metab Screen NEGATIVE (NEGATIVE) 09/16/17 00:15 U Cannabinoids Screen NEGATIVE (NEGATIVE) 09/16/17 00:15 Ethyl Alcohol < 10 mg/dL (0-10) 09/15/17 19:55 RPR NONREACTIVE (NONREACTIVE) 09/15/17 19:55 - Physical Exam Vitals and I&O: Vital Signs Temp 98 F 09/18/17 05:11 Pulse 103 09/18/17 05:11 Resp 18 09/18/17 08:00 BP 112/57 09/18/17 05:11 Pulse Ox 95 09/18/17 05:11 Intake & Output 09/17/17 09/18/17 09/18/17 18:59 06:59 18:59 Intake Total 1300 480 Balance 1300 480 Intake: Oral 1300 480 Other: # Voids 3 2 # Bowel Movements 1 Stool Characteristics Soft Active Medications: Current Medications Acetaminophen (Tylenol) 650 mg PO Q4HR PRN PRN Reason: Mild Pain / Temp above 100 Stop: 11/14/17 21:09 Acetaminophen/Hydrocodone Bitart ([place] 5mg/325mg) 1 tab PO Q4H PRN PRN Reason: MOD/SEVERE PAIN Stop: 11/15/17 05:39 Al Hydrox/Mg Hydrox/Simethicone (Maalox) 30 ml PO Q4HR PRN PRN Reason: GI DISTRESS Stop: 11/14/17 21:09 Artificial Tears (Artificial Tears Ophth Soln) 1 drop EACH EYE TID PRN PRN Reason: DRYNESS Stop: 11/15/17 05:49 Ascorbic Acid (Vitamin C) 500 mg PO BID [facility] Stop: 11/15/17 08:59 Last Admin: 09/18/17 09:30 Dose: 500 mg Bisacodyl (Dulcolax 10 Mg Supp) 10 mg RC DAILY PRN PRN Reason: IF MOM IS INEFFECTIVE Stop: 11/15/17 13:33 Docusate Sodium (Colace) 100 mg PO BID [facility] Stop: 11/15/17 08:59 Last Admin: 09/18/17 09:39 Dose: 100 mg Glipizide (Glucotrol) 5 mg PO DAILY [facility] Stop: 11/15/17 08:59 Last Admin: 09/18/17 09:31 Dose: 5 mg Insulin Aspart (Novolog Insulin Sliding Scale) 0 units SUBQ ACHS MERLENE PRN Reason: Protocol Stop: 11/15/17 07:29 Last Admin: 09/18/17 11:33 Dose: 4 units Insulin Aspart (Novolog) 10 units SUBQ BID MERLENE PRN Reason: Protocol Stop: 11/15/17 15:29 Last Admin: 09/18/17 09:38 Dose: 10 unit Insulin Detemir (Levemir Insulin) 20 units SUBQ DAILY MERLENE PRN Reason: Protocol Stop: 11/15/17 08:59 Last Admin: 09/18/17 09:29 Dose: 20 units Levofloxacin (Levaquin) 500 mg PO DAILY [facility] Stop: 11/16/17 08:59 Last Admin: 09/18/17 09:31 Dose: 500 mg Lorazepam (Ativan) 0.5 mg PO Q4HR PRN; Protocol PRN Reason: Anxiety/agitation Stop: 10/15/17 21:09 Last Admin: 09/17/17 20:44 Dose: 0.5 mg Magnesium Hydroxide (Milk Of Magnesia) 30 ml PO HS PRN PRN Reason: Constipation Magnesium Hydroxide (Milk Of Magnesia) 30 ml PO DAILY PRN PRN Reason: BOWEL MAINTENANCE Stop: 11/15/17 05:39 Metformin HCl (Glucophage) 500 mg PO BID [facility] Stop: 11/15/17 08:59 Last Admin: 09/18/17 09:31 Dose: 500 mg Multivitamins/Vitamin C (Theragran) 1 tab PO DAILY [facility] Stop: 11/15/17 08:59 Last Admin: 09/18/17 09:30 Dose: 1 tab Quetiapine Fumarate (Seroquel) 25 mg PO HS MERLENE PRN Reason: Protocol Stop: 11/16/17 20:59 Last Admin: 09/18/17 11:19 Dose: Not Given Rivaroxaban (Xarelto) 20 mg PO DAILY [facility] Stop: 11/15/17 08:59 Last Admin: 09/18/17 09:30 Dose: 20 mg Zolpidem Tartrate (Ambien) 5 mg PO HS PRN PRN Reason: Insomnia Stop: 11/14/17 21:09 Last Admin: 09/17/17 20:44 Dose: 5 mg General: alert HEENT: NC/AT, PERRLA Neck: Supple Lungs: CTAB Cardiovascular: RRR, Normal S1, Normal S2, without murmur Extremities: excoriation, contracture Neurological: alert, disorganized Internal Medicine Assmt/Plan - Assessment Assessment: - Assessment Assessment: acute uti htn cad hx tia - Plan Plan: continue po levaquin monitor bp continue current plan of care - Plan Plan: see orders
--- NOTE | 2017-09-18 17:31 | Progress Notes ---
DATE: 09/18/2017 SUBJECTIVE: Staff was spoken to. Patient is interviewed. Mood is noted to be elated. Affect is labile. The patient has pressured speech. Insight and judgment to be still impaired. Coping skills are noted to be poor. No side effects to medications are noted. The patient has been having difficult time to cope with the stress. ASSESSMENT: The patient is still impulsive. PLAN: To continue the patient with the supportive therapy, encouraged the patient to verbalize the concerns rather than to act out. [facility]# [id number]
[2017-09-19] MEDS: INSULIN ASPART SLIDING SCALE 100 UNITS/ML UNIT SUBQ SCH ×4 (06:31→20:52)
[2017-09-19] MEDS: Multivitamin Tab PO SCH (08:24)
[2017-09-19] MEDS: Insulin Detemir 100 units/mL 10mL Vial SUBQ SCH (08:57)
--- NOTE | 2017-09-19 17:14 | Progress Notes ---
DATE: 09/19/2017 SUBJECTIVE: Staff was spoken to. The patient is interviewed. Mood is noted to be irritable. Affect is constricted. Coping skills are noted to be poor at this time. Sleep and appetite are also noted to be poor. The patient has been sexually preoccupied and has been asking the female staff to be his wives. ASSESSMENT: The patient is still having mood swings. PLAN: To continue the patient's current medications and increase the dose on the neuroleptic and follow the patient. [facility]# [id number]
--- NOTE | 2017-09-19 21:29 | Internal Medicine Prog Note ---
Internal Medicine Subjective - Subjective Patient seen and examined:: with staff, chart reviewed Patient is:: awake, verbal Per staff patient has:: no adverse event, no episodes of fall, noncompliant, tolerating meds Internal Medicine Objective - Results Result Diagrams: 09/15/17 19:55 09/15/17 19:55 Recent Labs: Laboratory Last Values WBC 11.4 Th/cmm (4.8-10.8) H 09/15/17 19:55 RBC 4.21 Mil/cmm (3.80-5.80) 09/15/17 19:55 Hgb 13.5 gm/dL (12-16) 09/15/17 19:55 Hct 40.1 % (41.0-60) L 09/15/17 19:55 MCV 95.2 fl (80-99) 09/15/17 19:55 MCH 32.0 pg (27.0-31.0) H 09/15/17 19:55 MCHC Differential 33.6 pg (28.0-36.0) 09/15/17 19:55 RDW 13.5 % (11.5-20.0) 09/15/17 19:55 Plt Count 246 Th/cmm (150-400) 09/15/17 19:55 MPV 7.7 fl 09/15/17 19:55 Neutrophils % 56.0 % (40.0-80.0) 09/15/17 19:55 Lymphocytes % 35.2 % (20.0-50.0) 09/15/17 19:55 Monocytes % 5.3 % (2.0-10.0) 09/15/17 19:55 Eosinophils % 2.6 % (0.0-5.0) 09/15/17 19:55 Basophils % 0.9 % (0.0-2.0) 09/15/17 19:55 Sodium 136 mEq/L (136-145) 09/15/17 19:55 Potassium 4.5 mEq/L (3.5-5.1) 09/15/17 19:55 Chloride 103 mEq/L (98-107) 09/15/17 19:55 Carbon Dioxide 26.0 mEq/L (21.0-31.0) 09/15/17 19:55 Anion Gap 11.5 (7.0-16.0) 09/15/17 19:55 BUN 23 mg/dL (7-25) 09/15/17 19:55 Creatinine 1.2 mg/dL (0.7-1.3) 09/15/17 19:55 Est GFR ( Amer) TNP 09/15/17 19:55 Est GFR (Non-Af Amer) TNP 09/15/17 19:55 BUN/Creatinine Ratio 19.2 09/15/17 19:55 Glucose 153 mg/dL (70-105) H 09/15/17 19:55 Hemoglobin A1c % 8.8 % (4.0-6.0) H 09/15/17 19:55 Calcium 9.9 mg/dL (8.6-10.3) 09/15/17 19:55 Total Bilirubin 0.5 mg/dL (0.3-1.0) 09/15/17 19:55 AST 18 U/L (13-39) 09/15/17 19:55 ALT 17 U/L (7-52) 09/15/17 19:55 Alkaline Phosphatase 155 U/L (34-104) H 09/15/17 19:55 Total Protein 7.4 gm/dL (6.0-8.3) 09/15/17 19:55 Albumin 3.9 gm/dL (4.2-5.5) L 09/15/17 19:55 Globulin 3.5 gm/dL 09/15/17 19:55 Albumin/Globulin Ratio 1.1 (1.0-1.8) 09/15/17 19:55 Triglycerides 111 mg/dL (<150) 09/15/17 19:55 Cholesterol 160 mg/dL (<200) 09/15/17 19:55 LDL Cholesterol Direct 116 mg/dL (75-193) 09/15/17 19:55 HDL Cholesterol 42 mg/dL (23-92) 09/15/17 19:55 TSH 11.98 uIU/ml (0.34-5.60) H 09/15/17 19:55 Urine Source CLEAN C 09/16/17 00:15 Urine Color YELLOW 09/16/17 00:15 Urine Clarity CLEAR (CLEAR) 09/16/17 00:15 Urine pH 7.5 (4.6 - 8.0) 09/16/17 00:15 Ur Specific [place] 1.010 (1.005-1.030) 09/16/17 00:15 Urine Protein NEGATIVE mg/dL (NEGATIVE) 09/16/17 00:15 Urine Glucose (UA) 100 mg/dL (NEGATIVE) H 09/16/17 00:15 Urine Ketones NEGATIVE mg/dL (NEGATIVE) 09/16/17 00:15 Urine Blood NEGATIVE (NEGATIVE) 09/16/17 00:15 Urine Nitrate NEGATIVE (NEGATIVE) 09/16/17 00:15 Urine Bilirubin NEGATIVE (NEGATIVE) 09/16/17 00:15 Urine Urobilinogen 0.2 E.U./dL (0.2 - 1.0) 09/16/17 00:15 Ur Leukocyte Esterase SMALL (NEGATIVE) H 09/16/17 00:15 Urine RBC 0-2 /hpf (0-5) H 09/16/17 00:15 Urine WBC 2-5 /hpf (0-5) 09/16/17 00:15 Ur Epithelial Cells OCCASIONAL /lpf (FEW) 09/16/17 00:15 Urine Bacteria OCCASIONAL /hpf (NONE SEEN) 09/16/17 00:15 Salicylates < 25.0 mg/L (30.0-100.0) L 09/15/17 19:55 Urine Opiates Screen NEGATIVE (NEGATIVE) 09/16/17 00:15 Urine Methadone Screen NEGATIVE (NEGATIVE) 09/16/17 00:15 Acetaminophen < 10.0 ug/mL (10.0-30.0) L 09/15/17 19:55 Ur Barbiturates Screen NEGATIVE (NEGATIVE) 09/16/17 00:15 Ur Tricyclics Screen NEGATIVE (NEGATIVE) 09/16/17 00:15 Ur Phencyclidine Scrn NEGATIVE (NEGATIVE) 09/16/17 00:15 Amphetamines Screen NEGATIVE (NEGATIVE) 09/16/17 00:15 U Methamphetamines Scrn NEGATIVE (NEGATIVE) 09/16/17 00:15 U Benzodiazepines Scrn NEGATIVE (NEGATIVE) 09/16/17 00:15 U Cocaine Metab Screen NEGATIVE (NEGATIVE) 09/16/17 00:15 U Cannabinoids Screen NEGATIVE (NEGATIVE) 09/16/17 00:15 Ethyl Alcohol < 10 mg/dL (0-10) 09/15/17 19:55 RPR NONREACTIVE (NONREACTIVE) 09/15/17 19:55 - Physical Exam Vitals and I&O: Vital Signs Temp 97.3 F 09/19/17 20:48 Pulse 87 09/19/17 20:48 Resp 18 09/19/17 20:48 BP 111/68 09/19/17 20:48 Pulse Ox 99 09/19/17 20:48 Intake & Output 09/19/17 09/19/17 09/20/17 06:59 18:59 06:59 Intake Total 720 540 480 Balance 720 540 480 Intake: Oral 720 540 480 Other: # Voids 1 2 1 Active Medications: Current Medications Acetaminophen (Tylenol) 650 mg PO Q4HR PRN PRN Reason: Mild Pain / Temp above 100 Stop: 11/14/17 21:09 Acetaminophen/Hydrocodone Bitart ([place] 5mg/325mg) 1 tab PO Q4H PRN PRN Reason: MOD/SEVERE PAIN Stop: 11/15/17 05:39 Al Hydrox/Mg Hydrox/Simethicone (Maalox) 30 ml PO Q4HR PRN PRN Reason: GI DISTRESS Stop: 11/14/17 21:09 Artificial Tears (Artificial Tears Ophth Soln) 1 drop EACH EYE TID PRN PRN Reason: DRYNESS Stop: 11/15/17 05:49 Ascorbic Acid (Vitamin C) 500 mg PO BID [facility] Stop: 11/15/17 08:59 Last Admin: 09/19/17 17:23 Dose: 500 mg Bisacodyl (Dulcolax 10 Mg Supp) 10 mg RC DAILY PRN PRN Reason: IF MOM IS INEFFECTIVE Stop: 11/15/17 13:33 Divalproex Sodium (Depakote Dr) 125 mg PO Q12HR MERLENE PRN Reason: Protocol Stop: 11/18/17 20:59 Last Admin: 09/19/17 20:50 Dose: 125 mg Docusate Sodium (Colace) 100 mg PO BID [facility] Stop: 11/15/17 08:59 Last Admin: 09/19/17 17:23 Dose: 100 mg Glipizide (Glucotrol) 5 mg PO DAILY [facility] Stop: 11/15/17 08:59 Last Admin: 09/19/17 08:24 Dose: 5 mg Insulin Aspart (Novolog Insulin Sliding Scale) 0 units SUBQ ACHS MERLENE PRN Reason: Protocol Stop: 11/15/17 07:29 Last Admin: 09/19/17 20:52 Dose: Not Given Insulin Detemir (Levemir Insulin) 20 units SUBQ DAILY MERLENE PRN Reason: Protocol Stop: 11/15/17 08:59 Last Admin: 09/19/17 08:57 Dose: 20 units Levofloxacin (Levaquin) 500 mg PO DAILY [facility] Stop: 11/16/17 08:59 Last Admin: 09/19/17 08:24 Dose: 500 mg Lorazepam (Ativan) 0.5 mg PO Q4HR PRN; Protocol PRN Reason: Anxiety/agitation Stop: 10/15/17 21:09 Last Admin: 09/17/17 20:44 Dose: 0.5 mg Magnesium Hydroxide (Milk Of Magnesia) 30 ml PO HS PRN PRN Reason: Constipation Magnesium Hydroxide (Milk Of Magnesia) 30 ml PO DAILY PRN PRN Reason: BOWEL MAINTENANCE Stop: 11/15/17 05:39 Metformin HCl (Glucophage) 500 mg PO BID [facility] Stop: 11/15/17 08:59 Last Admin: 09/19/17 17:23 Dose: 500 mg Multivitamins/Vitamin C (Theragran) 1 tab PO DAILY [facility] Stop: 11/15/17 08:59 Last Admin: 09/19/17 08:24 Dose: 1 tab Quetiapine Fumarate (Seroquel) 25 mg PO HS MERLENE PRN Reason: Protocol Stop: 11/16/17 20:59 Last Admin: 09/19/17 20:50 Dose: 25 mg Rivaroxaban (Xarelto) 20 mg PO DAILY [facility] Stop: 11/15/17 08:59 Last Admin: 09/19/17 08:24 Dose: 20 mg Zolpidem Tartrate (Ambien) 5 mg PO HS PRN PRN Reason: Insomnia Stop: 11/14/17 21:09 Last Admin: 09/19/17 20:51 Dose: 5 mg General: alert HEENT: NC/AT, PERRLA Neck: Supple Lungs: CTAB Cardiovascular: RRR, Normal S1, Normal S2, without murmur Extremities: excoriation, contracture Neurological: alert, disorganized Internal Medicine Assmt/Plan - Assessment Assessment: - Assessment Assessment: acute uti htn cad hx tia - Plan Plan: continue po levaquin monitor bp continue current plan of care - Plan Plan: see orders
--- NOTE | 2017-09-20 00:17 | Consultation ---
DATE OF CONSULTATION: 09/17/2017 REQUESTING PHYSICIAN: Jesica Juárez M.D. TYPE OF CONSULTATION: Psychology. HISTORY OF PRESENT ILLNESS: The patient is a 77-year-old male. The patient is a resident of [facility]. The following is by review of medical record and the patient's self report. The patient is being admitted due to increased agitation and increased confusion. At the time of the interview, the patient was confused as to why he is in the hospital. The patient seems to be getting agitated during the clinical interview. The patient at times became selectively mute and was easily frustrated. The patient denied any suicidal ideation, plan, or intention. PAST MEDICAL HISTORY: Please see history and physical by Dr. Vogel. PAST PSYCHIATRIC HISTORY: Unavailable at this time. SUBSTANCE ABUSE HISTORY: None. Records unavailable. CURRENT MEDICATIONS: Please see admission medication reconciliation. ALLERGIES: No known drug allergies. PSYCHOSOCIAL HISTORY: The patient is a resident of [facility]. The patient did not answer questions about educational or occupational history or voodoo affiliation. He did not respond to questions about physical or sexual abuse or any legal issues at the time of this interview. MENTAL STATUS EXAMINATION: The patient appears to be of stated age. The patient's attitude is superficially cooperative. Eye contact is poor. Speech is rambling and loud. Mood is irritable. Affect is constricted. Thought process shows to be suspicious of the interviewer as well as the reasons for hospitalization. The patient needed cognitive redirection. The patient denied any auditory or visual hallucinations or any delusions; however, there may be some paranoid ideation present. Concentration is fair to poor. Impulse control is fair to poor. The patient did not participate in the memory assessment. Immediate memory seems intact, short term seems to be impaired, long-term memory needs to be further evaluated. The patient's behavior on the unit shows difficulty coping with stressors as well as the hospitalization. Sensorium is alert and oriented to person and place. The patient did not participate in the interpretation of proverbs. Insight is poor. Judgment is compromised. DIAGNOSTIC IMPRESSION: AXIS I: Dementia with behavioral disturbance. AXIS II: Deferred. AXIS III: Please see history and physical by Dr. Vogel. TREATMENT PLAN: The patient has been seen by Dr. Juárez for psychiatric evaluation and for the management of the patient's psychotropic medications. We will provide reality orientation and reality integration. We will provide simple de-escalation skills for the patient to verbalize his concerns. We will provide coping strategies for phase of life issues as well as stress management and anxiety reduction for the patient to increase his coping mechanisms and frustration tolerance. The patient is continued on Ativan and Seroquel per Dr. Juárez. Thank you, Dr. Juárez for this consult and the opportunity to participate with you in this patient's care. JOB# [id number] DANIEL
[2017-09-20] MEDS: INSULIN ASPART SLIDING SCALE 100 UNITS/ML UNIT SUBQ SCH ×4 (06:31→21:00)
[2017-09-20] MEDS ORDERED: Probiotic Screen MC PRN (08:45)
[2017-09-20] MEDS: Multivitamin Tab PO SCH (09:49)
[2017-09-20] MEDS: Lactobacillus Rhamnosus GG 15 Billion CFU CAP.SPRINK PO SCH (09:55)
[2017-09-20] MEDS: Insulin Detemir 100 units/mL 10mL Vial SUBQ SCH (09:55)
--- NOTE | 2017-09-20 13:21 | Internal Medicine Prog Note ---
Internal Medicine Subjective - Subjective Service Date: 09/20/17 Patient is:: awake, verbal Per staff patient has:: no adverse event, no episodes of fall, noncompliant, tolerating meds Internal Medicine Objective - Results Result Diagrams: 09/15/17 19:55 09/15/17 19:55 Recent Labs: Laboratory Last Values WBC 11.4 Th/cmm (4.8-10.8) H 09/15/17 19:55 RBC 4.21 Mil/cmm (3.80-5.80) 09/15/17 19:55 Hgb 13.5 gm/dL (12-16) 09/15/17 19:55 Hct 40.1 % (41.0-60) L 09/15/17 19:55 MCV 95.2 fl (80-99) 09/15/17 19:55 MCH 32.0 pg (27.0-31.0) H 09/15/17 19:55 MCHC Differential 33.6 pg (28.0-36.0) 09/15/17 19:55 RDW 13.5 % (11.5-20.0) 09/15/17 19:55 Plt Count 246 Th/cmm (150-400) 09/15/17 19:55 MPV 7.7 fl 09/15/17 19:55 Neutrophils % 56.0 % (40.0-80.0) 09/15/17 19:55 Lymphocytes % 35.2 % (20.0-50.0) 09/15/17 19:55 Monocytes % 5.3 % (2.0-10.0) 09/15/17 19:55 Eosinophils % 2.6 % (0.0-5.0) 09/15/17 19:55 Basophils % 0.9 % (0.0-2.0) 09/15/17 19:55 Sodium 136 mEq/L (136-145) 09/15/17 19:55 Potassium 4.5 mEq/L (3.5-5.1) 09/15/17 19:55 Chloride 103 mEq/L (98-107) 09/15/17 19:55 Carbon Dioxide 26.0 mEq/L (21.0-31.0) 09/15/17 19:55 Anion Gap 11.5 (7.0-16.0) 09/15/17 19:55 BUN 23 mg/dL (7-25) 09/15/17 19:55 Creatinine 1.2 mg/dL (0.7-1.3) 09/15/17 19:55 Est GFR ( Amer) TNP 09/15/17 19:55 Est GFR (Non-Af Amer) TNP 09/15/17 19:55 BUN/Creatinine Ratio 19.2 09/15/17 19:55 Glucose 153 mg/dL (70-105) H 09/15/17 19:55 Hemoglobin A1c % 8.8 % (4.0-6.0) H 09/15/17 19:55 Calcium 9.9 mg/dL (8.6-10.3) 09/15/17 19:55 Total Bilirubin 0.5 mg/dL (0.3-1.0) 09/15/17 19:55 AST 18 U/L (13-39) 09/15/17 19:55 ALT 17 U/L (7-52) 09/15/17 19:55 Alkaline Phosphatase 155 U/L (34-104) H 09/15/17 19:55 Total Protein 7.4 gm/dL (6.0-8.3) 09/15/17 19:55 Albumin 3.9 gm/dL (4.2-5.5) L 09/15/17 19:55 Globulin 3.5 gm/dL 09/15/17 19:55 Albumin/Globulin Ratio 1.1 (1.0-1.8) 09/15/17 19:55 Triglycerides 111 mg/dL (<150) 09/15/17 19:55 Cholesterol 160 mg/dL (<200) 09/15/17 19:55 LDL Cholesterol Direct 116 mg/dL (75-193) 09/15/17 19:55 HDL Cholesterol 42 mg/dL (23-92) 09/15/17 19:55 TSH 11.98 uIU/ml (0.34-5.60) H 09/15/17 19:55 Urine Source CLEAN C 09/16/17 00:15 Urine Color YELLOW 09/16/17 00:15 Urine Clarity CLEAR (CLEAR) 09/16/17 00:15 Urine pH 7.5 (4.6 - 8.0) 09/16/17 00:15 Ur Specific [place] 1.010 (1.005-1.030) 09/16/17 00:15 Urine Protein NEGATIVE mg/dL (NEGATIVE) 09/16/17 00:15 Urine Glucose (UA) 100 mg/dL (NEGATIVE) H 09/16/17 00:15 Urine Ketones NEGATIVE mg/dL (NEGATIVE) 09/16/17 00:15 Urine Blood NEGATIVE (NEGATIVE) 09/16/17 00:15 Urine Nitrate NEGATIVE (NEGATIVE) 09/16/17 00:15 Urine Bilirubin NEGATIVE (NEGATIVE) 09/16/17 00:15 Urine Urobilinogen 0.2 E.U./dL (0.2 - 1.0) 09/16/17 00:15 Ur Leukocyte Esterase SMALL (NEGATIVE) H 09/16/17 00:15 Urine RBC 0-2 /hpf (0-5) H 09/16/17 00:15 Urine WBC 2-5 /hpf (0-5) 09/16/17 00:15 Ur Epithelial Cells OCCASIONAL /lpf (FEW) 09/16/17 00:15 Urine Bacteria OCCASIONAL /hpf (NONE SEEN) 09/16/17 00:15 Salicylates < 25.0 mg/L (30.0-100.0) L 09/15/17 19:55 Urine Opiates Screen NEGATIVE (NEGATIVE) 09/16/17 00:15 Urine Methadone Screen NEGATIVE (NEGATIVE) 09/16/17 00:15 Acetaminophen < 10.0 ug/mL (10.0-30.0) L 09/15/17 19:55 Ur Barbiturates Screen NEGATIVE (NEGATIVE) 09/16/17 00:15 Ur Tricyclics Screen NEGATIVE (NEGATIVE) 09/16/17 00:15 Ur Phencyclidine Scrn NEGATIVE (NEGATIVE) 09/16/17 00:15 Amphetamines Screen NEGATIVE (NEGATIVE) 09/16/17 00:15 U Methamphetamines Scrn NEGATIVE (NEGATIVE) 09/16/17 00:15 U Benzodiazepines Scrn NEGATIVE (NEGATIVE) 09/16/17 00:15 U Cocaine Metab Screen NEGATIVE (NEGATIVE) 09/16/17 00:15 U Cannabinoids Screen NEGATIVE (NEGATIVE) 09/16/17 00:15 Ethyl Alcohol < 10 mg/dL (0-10) 09/15/17 19:55 RPR NONREACTIVE (NONREACTIVE) 09/15/17 19:55 - Physical Exam Vitals and I&O: Vital Signs Temp 99 F 09/20/17 06:09 Pulse 90 09/20/17 06:09 Resp 18 09/20/17 06:09 BP 121/61 09/20/17 06:09 Pulse Ox 96 09/20/17 06:09 Intake & Output 09/19/17 09/20/17 09/20/17 18:59 06:59 18:59 Intake Total 540 720 Balance 540 720 Intake: Oral 540 720 Other: # Voids 2 1 Active Medications: Current Medications Acetaminophen (Tylenol) 650 mg PO Q4HR PRN PRN Reason: Mild Pain / Temp above 100 Stop: 11/14/17 21:09 Acetaminophen/Hydrocodone Bitart ([place] 5mg/325mg) 1 tab PO Q4H PRN PRN Reason: MOD/SEVERE PAIN Stop: 11/15/17 05:39 Last Admin: 09/20/17 06:53 Dose: 1 tab Al Hydrox/Mg Hydrox/Simethicone (Maalox) 30 ml PO Q4HR PRN PRN Reason: GI DISTRESS Stop: 11/14/17 21:09 Artificial Tears (Artificial Tears Ophth Soln) 1 drop EACH EYE TID PRN PRN Reason: DRYNESS Stop: 11/15/17 05:49 Ascorbic Acid (Vitamin C) 500 mg PO BID [facility] Stop: 11/15/17 08:59 Last Admin: 09/20/17 09:49 Dose: 500 mg Bisacodyl (Dulcolax 10 Mg Supp) 10 mg RC DAILY PRN PRN Reason: IF MOM IS INEFFECTIVE Stop: 11/15/17 13:33 Divalproex Sodium (Depakote Dr) 125 mg PO Q12HR [facility] PRN Reason: Protocol Stop: 11/18/17 20:59 Last Admin: 09/20/17 09:49 Dose: 125 mg Docusate Sodium (Colace) 100 mg PO BID [facility] Stop: 11/15/17 08:59 Last Admin: 09/20/17 09:49 Dose: 100 mg Glipizide (Glucotrol) 5 mg PO DAILY [facility] Stop: 11/15/17 08:59 Last Admin: 09/20/17 09:55 Dose: 5 mg Insulin Aspart (Novolog Insulin Sliding Scale) 0 units SUBQ ACHS [facility] PRN Reason: Protocol Stop: 11/15/17 07:29 Last Admin: 09/20/17 12:00 Dose: 4 units Insulin Detemir (Levemir Insulin) 20 units SUBQ DAILY [facility] PRN Reason: Protocol Stop: 11/15/17 08:59 Last Admin: 09/20/17 09:55 Dose: 20 units Lactobacillus Rhamnosus (Culturelle 15b) 1 each PO DAILY [facility] Stop: 11/19/17 08:59 Last Admin: 09/20/17 09:55 Dose: 1 each Levofloxacin (Levaquin) 500 mg PO DAILY [facility] Stop: 11/16/17 08:59 Last Admin: 09/20/17 09:49 Dose: 500 mg Lorazepam (Ativan) 0.5 mg PO Q4HR PRN; Protocol PRN Reason: Anxiety/agitation Stop: 10/15/17 21:09 Last Admin: 09/17/17 20:44 Dose: 0.5 mg Magnesium Hydroxide (Milk Of Magnesia) 30 ml PO HS PRN PRN Reason: Constipation Magnesium Hydroxide (Milk Of Magnesia) 30 ml PO DAILY PRN PRN Reason: BOWEL MAINTENANCE Stop: 11/15/17 05:39 Metformin HCl (Glucophage) 500 mg PO BID [facility] Stop: 11/15/17 08:59 Last Admin: 09/20/17 09:49 Dose: 500 mg Miscellaneous (Probiotic Screen) 1 ea MC PRN PRN PRN Reason: PROTOCOL Stop: 11/19/17 08:44 Multivitamins/Vitamin C (Theragran) 1 tab PO DAILY [facility] Stop: 11/15/17 08:59 Last Admin: 09/20/17 09:49 Dose: 1 tab Quetiapine Fumarate (Seroquel) 25 mg PO HS [facility] PRN Reason: Protocol Stop: 11/16/17 20:59 Last Admin: 09/19/17 20:50 Dose: 25 mg Rivaroxaban (Xarelto) 20 mg PO DAILY [facility] Stop: 11/15/17 08:59 Last Admin: 09/20/17 09:49 Dose: 20 mg Zolpidem Tartrate (Ambien) 5 mg PO HS PRN PRN Reason: Insomnia Stop: 11/14/17 21:09 Last Admin: 09/19/17 20:51 Dose: 5 mg General: alert HEENT: NC/AT, PERRLA Neck: Supple Lungs: CTAB Cardiovascular: RRR, Normal S1, Normal S2, without murmur Extremities: excoriation, contracture Neurological: alert, disorganized Internal Medicine Assmt/Plan - Assessment Assessment: acute uti htn cad hx tia - Plan Plan: continue po levaquin monitor bp continue current plan of care
--- NOTE | 2017-09-21 03:18 | Progress Notes ---
DATE: 09/20/2017 SUBJECTIVE: Staff was spoken to. The patient is interviewed. Mood is noted to be irritable. Affect is constricted. The patient is asking the female staff members to be his girlfriend or . The patient is very intrusive and has no insight into his illness. Coping skills are noted to very poor. 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 He is going to be calling the police department to come and pick him up. The patient has no insight. Coping skills are noted to be extremely poor. ASSESSMENT: The patient is still grossly psychotic. PLAN: To continue the patient with the supportive therapy and followup. JOB# [id number]
[2017-09-21] MEDS: INSULIN ASPART SLIDING SCALE 100 UNITS/ML UNIT SUBQ SCH ×4 (06:44→20:52)
[2017-09-21] MEDS: Lactobacillus Rhamnosus GG 15 Billion CFU CAP.SPRINK PO SCH (09:34)
[2017-09-21] MEDS: Multivitamin Tab PO SCH (09:34)
[2017-09-21] MEDS: Insulin Detemir 100 units/mL 10mL Vial SUBQ SCH (09:49)
--- NOTE | 2017-09-21 12:28 | Internal Medicine Prog Note ---
Internal Medicine Subjective - Subjective Service Date: 09/21/17 Patient is:: awake, verbal Per staff patient has:: no adverse event, no episodes of fall, noncompliant, tolerating meds Internal Medicine Objective - Results Result Diagrams: 09/15/17 19:55 09/15/17 19:55 Recent Labs: Laboratory Last Values WBC 11.4 Th/cmm (4.8-10.8) H 09/15/17 19:55 RBC 4.21 Mil/cmm (3.80-5.80) 09/15/17 19:55 Hgb 13.5 gm/dL (12-16) 09/15/17 19:55 Hct 40.1 % (41.0-60) L 09/15/17 19:55 MCV 95.2 fl (80-99) 09/15/17 19:55 MCH 32.0 pg (27.0-31.0) H 09/15/17 19:55 MCHC Differential 33.6 pg (28.0-36.0) 09/15/17 19:55 RDW 13.5 % (11.5-20.0) 09/15/17 19:55 Plt Count 246 Th/cmm (150-400) 09/15/17 19:55 MPV 7.7 fl 09/15/17 19:55 Neutrophils % 56.0 % (40.0-80.0) 09/15/17 19:55 Lymphocytes % 35.2 % (20.0-50.0) 09/15/17 19:55 Monocytes % 5.3 % (2.0-10.0) 09/15/17 19:55 Eosinophils % 2.6 % (0.0-5.0) 09/15/17 19:55 Basophils % 0.9 % (0.0-2.0) 09/15/17 19:55 Sodium 136 mEq/L (136-145) 09/15/17 19:55 Potassium 4.5 mEq/L (3.5-5.1) 09/15/17 19:55 Chloride 103 mEq/L (98-107) 09/15/17 19:55 Carbon Dioxide 26.0 mEq/L (21.0-31.0) 09/15/17 19:55 Anion Gap 11.5 (7.0-16.0) 09/15/17 19:55 BUN 23 mg/dL (7-25) 09/15/17 19:55 Creatinine 1.2 mg/dL (0.7-1.3) 09/15/17 19:55 Est GFR ( Amer) TNP 09/15/17 19:55 Est GFR (Non-Af Amer) TNP 09/15/17 19:55 BUN/Creatinine Ratio 19.2 09/15/17 19:55 Glucose 153 mg/dL (70-105) H 09/15/17 19:55 Hemoglobin A1c % 8.8 % (4.0-6.0) H 09/15/17 19:55 Calcium 9.9 mg/dL (8.6-10.3) 09/15/17 19:55 Total Bilirubin 0.5 mg/dL (0.3-1.0) 09/15/17 19:55 AST 18 U/L (13-39) 09/15/17 19:55 ALT 17 U/L (7-52) 09/15/17 19:55 Alkaline Phosphatase 155 U/L (34-104) H 09/15/17 19:55 Total Protein 7.4 gm/dL (6.0-8.3) 09/15/17 19:55 Albumin 3.9 gm/dL (4.2-5.5) L 09/15/17 19:55 Globulin 3.5 gm/dL 09/15/17 19:55 Albumin/Globulin Ratio 1.1 (1.0-1.8) 09/15/17 19:55 Triglycerides 111 mg/dL (<150) 09/15/17 19:55 Cholesterol 160 mg/dL (<200) 09/15/17 19:55 LDL Cholesterol Direct 116 mg/dL (75-193) 09/15/17 19:55 HDL Cholesterol 42 mg/dL (23-92) 09/15/17 19:55 TSH 11.98 uIU/ml (0.34-5.60) H 09/15/17 19:55 Urine Source CLEAN C 09/16/17 00:15 Urine Color YELLOW 09/16/17 00:15 Urine Clarity CLEAR (CLEAR) 09/16/17 00:15 Urine pH 7.5 (4.6 - 8.0) 09/16/17 00:15 Ur Specific [place] 1.010 (1.005-1.030) 09/16/17 00:15 Urine Protein NEGATIVE mg/dL (NEGATIVE) 09/16/17 00:15 Urine Glucose (UA) 100 mg/dL (NEGATIVE) H 09/16/17 00:15 Urine Ketones NEGATIVE mg/dL (NEGATIVE) 09/16/17 00:15 Urine Blood NEGATIVE (NEGATIVE) 09/16/17 00:15 Urine Nitrate NEGATIVE (NEGATIVE) 09/16/17 00:15 Urine Bilirubin NEGATIVE (NEGATIVE) 09/16/17 00:15 Urine Urobilinogen 0.2 E.U./dL (0.2 - 1.0) 09/16/17 00:15 Ur Leukocyte Esterase SMALL (NEGATIVE) H 09/16/17 00:15 Urine RBC 0-2 /hpf (0-5) H 09/16/17 00:15 Urine WBC 2-5 /hpf (0-5) 09/16/17 00:15 Ur Epithelial Cells OCCASIONAL /lpf (FEW) 09/16/17 00:15 Urine Bacteria OCCASIONAL /hpf (NONE SEEN) 09/16/17 00:15 Salicylates < 25.0 mg/L (30.0-100.0) L 09/15/17 19:55 Urine Opiates Screen NEGATIVE (NEGATIVE) 09/16/17 00:15 Urine Methadone Screen NEGATIVE (NEGATIVE) 09/16/17 00:15 Acetaminophen < 10.0 ug/mL (10.0-30.0) L 09/15/17 19:55 Ur Barbiturates Screen NEGATIVE (NEGATIVE) 09/16/17 00:15 Ur Tricyclics Screen NEGATIVE (NEGATIVE) 09/16/17 00:15 Ur Phencyclidine Scrn NEGATIVE (NEGATIVE) 09/16/17 00:15 Amphetamines Screen NEGATIVE (NEGATIVE) 09/16/17 00:15 U Methamphetamines Scrn NEGATIVE (NEGATIVE) 09/16/17 00:15 U Benzodiazepines Scrn NEGATIVE (NEGATIVE) 09/16/17 00:15 U Cocaine Metab Screen NEGATIVE (NEGATIVE) 09/16/17 00:15 U Cannabinoids Screen NEGATIVE (NEGATIVE) 09/16/17 00:15 Ethyl Alcohol < 10 mg/dL (0-10) 09/15/17 19:55 RPR NONREACTIVE (NONREACTIVE) 09/15/17 19:55 - Physical Exam Vitals and I&O: Vital Signs Temp 98.3 F 09/21/17 06:00 Pulse 90 09/21/17 06:00 Resp 20 09/21/17 06:00 BP 109/56 09/21/17 06:00 Pulse Ox 95 09/21/17 06:00 Intake & Output 09/20/17 09/21/17 09/21/17 18:59 06:59 18:59 Intake Total 1000 480 Balance 1000 480 Intake: Oral 1000 480 Other: # Voids 4 1 # Bowel Movements 0 Active Medications: Current Medications Acetaminophen (Tylenol) 650 mg PO Q4HR PRN PRN Reason: Mild Pain / Temp above 100 Stop: 11/14/17 21:09 Acetaminophen/Hydrocodone Bitart ([place] 5mg/325mg) 1 tab PO Q4H PRN PRN Reason: MOD/SEVERE PAIN Stop: 11/15/17 05:39 Last Admin: 09/20/17 06:53 Dose: 1 tab Al Hydrox/Mg Hydrox/Simethicone (Maalox) 30 ml PO Q4HR PRN PRN Reason: GI DISTRESS Stop: 11/14/17 21:09 Artificial Tears (Artificial Tears Ophth Soln) 1 drop EACH EYE TID PRN PRN Reason: DRYNESS Stop: 11/15/17 05:49 Ascorbic Acid (Vitamin C) 500 mg PO BID [facility] Stop: 11/15/17 08:59 Last Admin: 09/21/17 09:34 Dose: 500 mg Bisacodyl (Dulcolax 10 Mg Supp) 10 mg RC DAILY PRN PRN Reason: IF MOM IS INEFFECTIVE Stop: 11/15/17 13:33 Divalproex Sodium (Depakote Dr) 125 mg PO Q12HR [facility] PRN Reason: Protocol Stop: 11/18/17 20:59 Last Admin: 09/21/17 09:34 Dose: 125 mg Docusate Sodium (Colace) 100 mg PO BID [facility] Stop: 11/15/17 08:59 Last Admin: 09/21/17 09:34 Dose: 100 mg Glipizide (Glucotrol) 5 mg PO DAILY [facility] Stop: 11/15/17 08:59 Last Admin: 09/21/17 09:34 Dose: 5 mg Insulin Aspart (Novolog Insulin Sliding Scale) 0 units SUBQ ACHS [facility] PRN Reason: Protocol Stop: 11/15/17 07:29 Last Admin: 09/21/17 12:20 Dose: 2 units Insulin Detemir (Levemir Insulin) 20 units SUBQ DAILY [facility] PRN Reason: Protocol Stop: 11/15/17 08:59 Last Admin: 09/21/17 09:49 Dose: 20 units Lactobacillus Rhamnosus (Culturelle 15b) 1 each PO DAILY [facility] Stop: 11/19/17 08:59 Last Admin: 09/21/17 09:34 Dose: 1 each Levofloxacin (Levaquin) 500 mg PO DAILY [facility] Stop: 11/16/17 08:59 Last Admin: 09/21/17 09:33 Dose: 500 mg Lorazepam (Ativan) 0.5 mg PO Q4HR PRN; Protocol PRN Reason: Anxiety/agitation Stop: 10/15/17 21:09 Last Admin: 09/17/17 20:44 Dose: 0.5 mg Magnesium Hydroxide (Milk Of Magnesia) 30 ml PO HS PRN PRN Reason: Constipation Magnesium Hydroxide (Milk Of Magnesia) 30 ml PO DAILY PRN PRN Reason: BOWEL MAINTENANCE Stop: 11/15/17 05:39 Metformin HCl (Glucophage) 500 mg PO BID [facility] Stop: 11/15/17 08:59 Last Admin: 09/21/17 09:34 Dose: 500 mg Miscellaneous (Probiotic Screen) 1 ea MC PRN PRN PRN Reason: PROTOCOL Stop: 11/19/17 08:44 Multivitamins/Vitamin C (Theragran) 1 tab PO DAILY [facility] Stop: 11/15/17 08:59 Last Admin: 09/21/17 09:34 Dose: 1 tab Quetiapine Fumarate (Seroquel) 25 mg PO HS [facility] PRN Reason: Protocol Stop: 11/16/17 20:59 Last Admin: 09/20/17 20:53 Dose: 25 mg Rivaroxaban (Xarelto) 20 mg PO DAILY [facility] Stop: 11/15/17 08:59 Last Admin: 09/21/17 09:33 Dose: 20 mg Zolpidem Tartrate (Ambien) 5 mg PO HS PRN PRN Reason: Insomnia Stop: 11/14/17 21:09 Last Admin: 09/19/17 20:51 Dose: 5 mg General: alert HEENT: NC/AT, PERRLA Neck: Supple Lungs: CTAB Cardiovascular: RRR, Normal S1, Normal S2, without murmur Extremities: excoriation, contracture Neurological: alert, disorganized Internal Medicine Assmt/Plan - Assessment Assessment: acute uti htn cad hx tia - Plan Plan: continue po levaquin monitor bp continue current plan of care Nutritional Asmnt/Malnutr-PDOC - Dietary Evaluation Malnutrition Findings (Please click <Entered> for more info): Nutritional Asmnt/Malnutrition Start: 09/20/17 17: 26 Text: Status: Complete Freq: Document 09/20/17 17:26 [facility] (Rec: 09/20/17 17:33 [email or web address] [id number]) Nutritional Asmnt/Malnutrition Patient General Information Nutritional Screening Moderate Risk Diagnosis psychosis Pertinent Medical Hx/Surgical Hx HTN, CAD, CVA, dyslipidemia Subjective Information Per EMR, PO intake 100%. Current Diet Order/ Nutrition Support regular Pertinent Medications vit C, colace, glucotrol, novolog, levemir, culturelle, levaquin, glucophage, theragran, seroquel Pertinent Labs 09/15 glucose 153, A1c 8.8 Nutritional Hx/Data Height 5 ft 5 in Height (Calculated Centimeters) 165.1 Current Weight (lbs) 155 lb Weight (Calculated Kilograms) 70.3 Weight (Calculated Grams) 61610.8 [place] Body Weight 142 Body Mass Index (BMI) 25.7 Weight Status Overweight GI Symptoms GI Symptoms None Last BM 09/17 Difficult in: None Skin Integrity/Comment: nithin score 18 Current %PO Good (75-100%) Estimated Nutritional Goals BEE in Kcals: Using Current wt Calories/Kcals/Kg 25-30 Kcals Calculated 9235-1797 Protein: Using Current wt Protein g/k-1.2 Protein Calculated 70-84 Fluid: ml 1750-2100ml (1ml/kcal) Nutritional Problem 1. Problem Problem altered nutrition related labs Etiology endocrine dysfunction Signs/Symptoms: glucose 153, A1c 8.8 Intervention/Recommendation Comments 1. Recommend CCHO-60gm diet for optimal glycemic control 2. Monitor PO intake, wt, labs and skin integrity 3. F/U as low risk in 7 days, / Expected Outcomes/Goals Expected Outcomes/Goals 1. PO intake to meet at least 75% of nutritional needs. 2. Wt stability, skin to remain intact, labs to approach WNL.
--- NOTE | 2017-09-21 19:48 | Progress Notes ---
DATE: 09/21/2017 SUBJECTIVE: Staff was spoken to. The patient is interviewed. Mood is noted to be still irritable. Affect is constricted. The patient is still displaying the mood swings. The patient is proposing to the staff that he wants to be paying a lot of money and he wants them to be in his girlfriend or his . The patient has no insight into his illness. Coping skills are noted to be very poor. No side effects to the medications are noted. The patient is currently on the valproic acid 125 mg, which is going to be increased to 250 mg twice a day and the patient is going to be followed up with the supportive therapy. Please note that the patient is not ready to be discharged to self because of his acute mood swings and sexualized behavior. PLAN: To continue this patient with these current medications and continue the Seroquel at nighttime and follow him up. JOB# [id number]
[2017-09-22] MEDS: INSULIN ASPART SLIDING SCALE 100 UNITS/ML UNIT SUBQ SCH ×2 (06:33→11:40)
[2017-09-22] MEDS: Lactobacillus Rhamnosus GG 15 Billion CFU CAP.SPRINK PO SCH (09:26)
[2017-09-22] MEDS: Multivitamin Tab PO SCH (09:26)
[2017-09-22] MEDS: Insulin Detemir 100 units/mL 10mL Vial SUBQ SCH (10:45)
--- NOTE | 2017-09-22 15:42 | Discharge Summary ---
DATE OF DISCHARGE: 09/22/2017 IDENTIFYING DATA: The patient is a 77-year-old male, [facility] Information obtained by directly interviewing the patient as well as reviewing the admission paper. JUSTIFICATION OF HOSPITALIZATION: The patient admitted on a voluntary basis in view of his agitation and confusion. CHIEF COMPLAINT: "I don't know why they have to bring me in here." DIAGNOSES AT THE TIME OF ADMISSION: AXIS I: Dementia and behavioral change secondary ____, rule out schizoaffective disorder. AXIS II: None. AXIS III: As per Dr. Vogel. HISTORY OF PRESENT ILLNESS: Please refer to 09/15/2017 dictation done by me. Physical examination was done by Dr. Vogel at the time of the hospitalization and is noted to be significant for the patient to have hypertension, coronary artery disease, history of CVA and dyslipidemia. HOSPITAL COURSE AND RESPONSE TO TREATMENT: The patient's blood work has been reviewed by Dr. Vogel. No major intervention was needed. Hospital course is significant patient to be sexually preoccupied and has been trying to propose to the nursing staff and the patient has been placed on the valproic acid, which was gradually increased to 250 mg twice a day and the patient also has been continued on the Seroquel 25 mg at bedtime. With these medications, the patient was observed, the patient's impulsivity started to resolve and the patient was finally discharged on 09/22/2017 with recommendation that he is going to be seeking treatment on an outpatient basis. MENTAL STATUS EXAMINATION: At the time of discharge, the patient's mood is noted to be anxious. Affect is appropriate. Not suicidal or homicidal. Insight and judgment are noted to fair. Impulse control is also noted to be fair. No side effects to the medications are noted. The patient has been able to verbalize the concerns rather than to act out at the time of discharge. DIAGNOSES AT THE TIME OF DISCHARGE AXIS I: Schizoaffective disorder. AXIS II: None. AXIS III: Hypertension, coronary artery disease, chronic obstructive pulmonary disease, hyperlipidemia. AFTERCARE PLAN: The patient is discharged back to the [facility] for further care. JOB# [id number]
== END 2017-09-22 11:30 | DRG 885 ==
LOC: ER 18:30 → GERO2 20:35
PROVIDERS: ADMIT Psychiatry & Neurology Psychiatry; ATTEND Psychiatry & Neurology Psychiatry
DX: F25.9 Schizoaffective disorder, unspecified (principal); F03.91 Unspecified dementia, unspecified severity, with behavioral disturbance; N39.0 Urinary tract infection, site not specified; E78.5 Hyperlipidemia, unspecified; I10 Essential (primary) hypertension; I25.10 Atherosclerotic heart disease of native coronary artery without angina pectoris; F63.9 Impulse disorder, unspecified; F31.9 Bipolar disorder, unspecified; J44.9 Chronic obstructive pulmonary disease, unspecified; Z86.73 Personal history of transient ischemic attack (TIA), and cerebral infarction without residual deficits; Z82.49 Family history of ischemic heart disease and other diseases of the circulatory system
CPT/HCPCS: 36415-UA; 80053-TC; 80061-TC; 80307; 80320-TC; 80329-TC; 81001-TC; 83036-90; 84443-TC; 85025-TC; 86592-TC; 93005; J1815; Z7610

== ENCOUNTER 2018-10-12 21:16 | Inpatient (IN) | payer MEDICARE, MEDICAID ==
[2018-10-12 22:19] LABS: % EOSINOPHILS 1.3 % (0.0-5.0); % LYMPHOCYTES 20.9 % (20.0-50.0); % MONOCYTES 5.1 % (2.0-10.0); % NEUTROPHILS 71.7 % (40.0-80.0); BASOPHILE ABSOLUTE 0.1 Th/cumm (0-0.2); EOSINOPHILE ABSOLUTE 0.2 Th/cmm (0.1-0.4); HEMOGLOBIN 12.3 gm/dL (12-16); LYMPHOCYTE ABSOLUTE 2.6 Th/cmm (1.5-3.0); MEAN CELL VOLUME 87.6 fl (80-99); MEAN CORPUSCULAR HEMOGLOBIN 29.1 pg (27.0-31.0); MEAN CORPUSCULAR HGB CONC 33.3 pg (28.0-36.0); MEAN PLATELET VOLUME 7.7 fl; MONOCYTE ABSOLUTE 0.6 Th/cmm (0.3-1.0); NEUTROPHILE ABSOLUTE 8.8 Th/cmm (1.8-8.0); PLATELET COUNT 335 Th/cmm (150-400); RED BLOOD COUNT 4.22 Mil/cmm (3.80-5.80); RED CELL DISTRIBUTION WIDTH 16.1 % (11.5-20.0); WHITE BLOOD COUNT 12.3 Th/cmm (4.8-10.8)
[2018-10-12 23:08] LABS: ALBUMIN 3.9 gm/dL (4.2-5.5); ALKALINE PHOSPHATASE 122 U/L (34-104); BILIRUBIN,TOTAL 0.4 mg/dL (0.3-1.0); BUN - UREA NITROGEN 19 mg/dL (7-25); CALCIUM SERUM 9.8 mg/dL (8.6-10.3); CARBON DIOXIDE 26.8 mEq/L (21.0-31.0); CHLORIDE 104 mEq/L (98-107); CREATININE - SERUM 1.2 mg/dL (0.7-1.3); GLUCOSE 76 mg/dL (70-105); POTASSIUM SERUM 4.8 mEq/L (3.5-5.1); SGOT 19 U/L (13-39); SGPT/ALT 11 U/L (7-52); SODIUM SERUM 140 mEq/L (136-145); TOTAL PROTEIN,SERUM 7.7 gm/dL (6.0-8.3)
--- NOTE | 2018-10-12 23:12 | ED Physician Chart ---
ED Chief Complaint/HPI - Patient Information Date Seen:: 10/12/18 Time Seen:: 23:07 Chief Complaint:: agitation increased depression History of Present Illness:: 78 yr old male here from [facility] agitation worsening depression Allergies:: Allergies Allergy/AdvReac Type Severity Reaction Status Date / Time No Known Allergies Allergy Verified 09/15/17 18:36 Vitals:: Vital Signs - 8 hr 10/12/18 21:40 Temp 98.0 F HR 80 RR 15 BP 126/66 O2 Sat % 96 ED Review of Systems - Review of Systems General/Constitutional: No fever, No chills, No weight loss, No weakness, No diaphoresis, No edema, No loss of appetite Skin: No skin lesions, No rash, No bruising Head: No headache, No light-headedness Eyes: No loss of vision, No pain, No diplopia ENT: No earache, No nasal drainage, No sore throat, No tinnitus Neck: No neck pain, No swelling, No thyromegaly, No stiffness, No mass noted Cardio Vascular: No chest pain, No palpitations, No PND, No orthopnea, No edema Pulmonary: No SOB, No cough, No sputum, No wheezing GI: No nausea, No vomiting, No diarrhea, No pain, No melena, No hematochezia, No constipation, No hematemesis G/U: No dysuria, No frequency, No hematuria Musculoskeletal: No bone or joint pain, No back pain, No muscle pain Endocrine: No polyuria, No polydipsia Psychiatric: No prior psych history, No depression, No anxiety, No suicidal ideation Hematopoietic: No bruising, No lymphadenopathy Allergic/Immuno: No urticaria, No angioedema Neurological: No syncope, No focal symptoms, No weakness, No paresthesia, No headache, No seizure, No dizziness, No confusion, No vertigo ED Past Medical History - Past Medical History Past Medical History: DM, Asthma/COPD, Dementia Family Medical History - Family Member Mother History Unknown: Yes Ethnicity: Unknown Living Status: Unknown ED Physical Exam - Physical Examination General/Constitutional: Well-developed, well-nourished Head: Atraumatic Eyes: Lids, conjuctiva normal Other Skin comments:: has dry eschar rt foot Respiratory: Nl effort/Exclusion Cardio Vascular: RRR GI: No tenderness/rebounding/guarding Extremities: No tenderness or effusion ED Labs/Radiology/EKG Results - Lab Results Results: Laboratory Tests 10/12/18 22:00 WBC 12.3 H RBC 4.22 Hgb 12.3 Hct 37.0 L MCV 87.6 MCH 29.1 MCHC Differential 33.3 RDW 16.1 Plt Count 335 MPV 7.7 Neutrophils % 71.7 Lymphocytes % 20.9 Monocytes % 5.1 Eosinophils % 1.3 Basophils % 1.0 ED Assessment - Assessment General Assessment: agitation worsening depression ED Septic Shock - . Is Septic Shock (SBP<90, OR Lactate>4 mmol\L) present?: No - <6hrs of presentation: Vital Signs: Vital Signs - 8 hr 10/12/18 21:40 Temp 98.0 F HR 80 RR 15 BP 126/66 O2 Sat % 96 ED Reassessment (Disposition) - Reassessment Reassessment:: agitation inappropriate gestures and requests - Diagnosis Diagnosis:: inappropriate behavious - Patient Disposition Discharge/Transfer:: Acute Care w/in this hosp Admitted to:: Med/Surg Condition at Disposition:: Stable
[2018-10-13 02:22] VITALS: BP 110/55
[2018-10-13] MEDS ORDERED: Acetaminophen 500 MG TAB PO PRN (06:48)
[2018-10-13] MEDS ORDERED: Magnesium Hydroxide (MOM) 30 mL UDC PO PRN (06:48)
[2018-10-13] MEDS ORDERED: Hydrocodone/APAP 5mg/325mg Tab PO PRN (06:48)
[2018-10-13] MEDS ORDERED: GLUCAGON HCl 1 MG KIT IM PRN (06:57)
[2018-10-13] MEDS ORDERED: Dextrose 50% 50 mL Abboject IVP PRN (06:57)
[2018-10-13 08:39] LABS: CHOLESTEROL 68 mg/dL (<200); HDL -HIGH DENSITY LIPOPROTEIN 22 mg/dL (23-92); TRIGLYCERIDES 59 mg/dL (<150)
[2018-10-13] MEDS ORDERED: Multivitamin w/ Minerals Tab PO SCH (09:00)
[2018-10-13] MEDS ORDERED: Non-Formulary Item 1 EA (Amino Acids/Protein Hydrolys [Pro-Stat Sugar Free Liquid] 30 ML) PO SCH (09:00)
[2018-10-13] MEDS ORDERED: Non-Formulary Item 1 EA (Docusate Sodium [Docusate Sodium] 100 MG) PO SCH (09:00)
[2018-10-13] MEDS ORDERED: Insulin Glargine 100 units/ml 10ml Vial SUBQ SCH (09:00)
[2018-10-13] MEDS ORDERED: Potassium Chloride 10 mEq ER Tab PO SCH (09:00)
[2018-10-13] MEDS: INSULIN LISPRO SLIDING SCALE 100 UNITS/ML UNIT SUBQ SCH ×2 (09:14→12:00)
--- NOTE | 2018-10-13 16:26 | Psychiatric Evaluation ---
DATE OF SERVICE: 10/13/2018 PSYCHIATRIC EVALUATION IDENTIFYING DATA: The patient is an 78-year-old male, resident of [facility] in [place]. Information obtained by directly interviewing the patient as well as reviewing the admission papers. JUSTIFICATION FOR HOSPITALIZATION: The patient is admitted for confusion and depression. The patient has been cleared through the Emergency Room and has been admitted for increased isolation and depression. During the interview, the patient has been noted to be very confused and disoriented and has been talking to self, not making much sense. The patient is reported to have high white count and it is decided by the medical doctor to transfer the patient to the medical unit for further care. During the evaluation, the patient is going off and not able to provide much information. Sleep and appetite prior to the hospitalization are reported to be poor. Prior to the hospitalization, the patient is reported to have been very withdrawn and isolative and not able to participate in any of the groups and hence he has been referred over here. PAST PSYCHIATRIC HISTORY: Details are not known. MEDICAL HISTORY AND PHYSICAL EXAMINATION: Requested done by Dr. Berger and is significant for multiple medical problems such as nontraumatic ischemic infarction and osteomyelitis. Dementia, COPD and diabetes mellitus type 2. As mentioned, the patient was hospitalized in 2018 under my care. The patient is a resident of the [facility] facility. SUBSTANCE ABUSE HISTORY: None. MENTAL STATUS EXAMINATION: The patient is an 78-year-old, looking his stated age, superficially cooperative, getting easily agitated and confused. The patient is not making much sense and the patient is talking to self. Coping skills are noted to be very poor. Attention span and concentration are also noted to be very poor. The patient's short and long-term are noted to be very much impaired. The patient is reported to have been feeling depressed, isolative and withdrawn. Prior to being hospitalized, but at this time, I am not getting those things, but accept the patient being confused. DIAGNOSTIC IMPRESSION: AXIS: Delirium secondary to the medical problems. AXIS IB: Dementia and behavioral change, secondary trait. AXIS IC: Depressive disorder, not otherwise specified. PLAN: To closely monitor the patient and the patient is going to be transferred to the medical unit once medically stabilized, the patient is going to be closely monitored. The patient is currently on 125 mg twice a day of the Depakote and 25 mg of the Seroquel. He is going to be continued with these medications. The patient is going to be followed up. JOB# [id number]
[2018-10-13] MEDS ORDERED: Non-Formulary Item 1 EA (Atorvastatin Calcium [Lipitor] 20 MG) PO SCH (21:00)
[2018-10-13] MEDS ORDERED: Atorvastatin Calcium 10 MG TAB PO SCH (21:00)
--- NOTE | 2018-10-15 14:30 | Progress Notes ---
DATE: 10/15/2018 SUBJECTIVE: Staff was spoken to. The patient is interviewed. The patient has been alert and aware that he is in the hospital. The patient is not talking to self that much, but the patient has paranoia. Insight and judgment is noted to be improving. Impulse control seems to be fair. The patient is not presenting with any threats to harm self or others. The patient have confusion at this time, he seems to be lucid. ASSESSMENT: The patient is stabilizing, but is demented. PLAN: To continue the patient with the supportive therapy and followup. JOB# [id number]
== END 2018-10-13 16:20 | disposition short-term general hospital (02) | DRG 884 ==
LOC: ER 21:16 → GERO2 10-13 00:56
PROVIDERS: ADMIT Psychiatry & Neurology Psychiatry; ATTEND Psychiatry & Neurology Psychiatry
DX: F03.91 Unspecified dementia, unspecified severity, with behavioral disturbance (principal); J44.9 Chronic obstructive pulmonary disease, unspecified; E11.9 Type 2 diabetes mellitus without complications; F32.9 Major depressive disorder, single episode, unspecified; R41.0 Disorientation, unspecified
CPT/HCPCS: 36415-UA; 80053-TC; 80061-TC; 82948-90; 83036-90; 83605; 84443-TC; 85025-TC; 86592-TC; 93005; J1815; Z7610

== ENCOUNTER 2018-10-13 17:34 | Inpatient (IN) | payer MEDICARE, MEDICAID ==
--- NOTE | 2018-10-13 18:28 | History and Physical ---
History of Present Illness - HPI Chief Complaint: this is a 79 years old, permanent resident of a SNF. He was send for increased in agitation evaluation HPI: Patient was send from a SNF for increased in agitation evaluation. After be admitted in [facility] unit was found that he has Decubit ulcers stage 3, reason why he wasw transfered to Med/surg. 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: Dementia GI: Report: No Pertinent Hx Psych: Report: Depression, Psychosis Musculoskeletal: Report: Weakness Rheumatologic: Report: No pertinent Hx Infectious Disease: Report: No Pertinent Hx Renal/: Report: No Pertinent Hx Endocrine: Report: Diabetes Dermatology: Report: Other (Multiple decubit ulcers) Family Medical History - Family Member Mother History Unknown: Yes Ethnicity: Unknown Living Status: Unknown Social History Smoke: No Alcohol: None Drugs: None Lives: Intermediate Domestic Violence: Negative - Medications Home Medications: Home Medication Medication Instructions Recorded Type Acetaminophen [Tylenol Extra 500 mg PO Q6HR PRN 10/12/18 History Strength] Amino Acids/Protein Hydrolys 30 ml PO TID 10/12/18 History [Pro-Stat Sugar Free Liquid] Ascorbic Acid [Vitamin C] 500 mg PO BID 10/12/18 History Bisacodyl [Dulcolax 10 Mg Supp] 10 mg RC DAILY PRN 10/12/18 History Divalproex Sodium 125 mg PO BID 10/12/18 History Hydrocodone/Acetaminophen [[place] 1 each PO Q4H PRN 10/12/18 History 5-325 Tablet] Insulin Glargine [Lantus Insulin] 20 units SUBQ BID 10/12/18 History Magnesium Hydroxide [Milk of 30 ml PO HS PRN 10/12/18 History Magnesia] Multivitamin w/ Minerals 1 tab PO DAILY 10/12/18 History [Theragran M] Potassium Chloride ER [Klor-Con] 10 meq PO DAILY 10/12/18 History QUEtiapine Fumarate [SEROquel] 25 mg PO HS 10/12/18 History Atorvastatin Calcium [Lipitor] 20 mg PO HS tab 10/13/18 Rx Dextrose 50% [D50w] 50 ml IVP PRN PRN syr 10/13/18 Rx Dextrose Oral Gel [Glutose 40%] 18.75 gm PO PRN PRN tube 10/13/18 Rx Docusate Sodium [Colace] 100 mg PO BID cap 10/13/18 Rx GLUCAGON HCl [Glucagen] 1 mg IM PRN PRN kit 10/13/18 Rx Insulin Lispro Sliding Scale See Protocol SUBQ ACHS unit 10/13/18 Rx [humaLOG INSULIN SLIDING SCALE] Lorazepam [Ativan] 0.5 mg PO Q4HR PRN tab 10/13/18 Rx Zolpidem Tartrate [Ambien] 5 mg PO HS PRN tab 10/13/18 Rx - Allergies Allergies/Adverse Reactions: Allergies Allergy/AdvReac Type Severity Reaction Status Date / Time No Known Allergies Allergy Verified 09/15/17 18:36 Review of Systems - Review of Systems Constitutional: Report: No Significant Eyes: Report: No Significant ENT: Report: No Significant Respiratory: Report: No Significant Cardiovascular: Report: No Significant Gastrointestinal: Report: No Significant Genitourinary: Report: No Significant Musculoskeletal: Report: No Significant Skin: Report: Other (Multiple pressure ulcers) Neurological: Report: Weakness Physical Exam - Physical Exam HEENT: Report: Ears Nose Throat within normal limits Neck: Report: Within normal limits Cardiovascular Systems: Report: Regular, Rate and Rhythm Respiratory: Report: Breath Sounds are within normal limits Abdomen: Report: Non-tender to palpation Back: Report: Inspection of back is within normal limits. Extremities: Report: Non-tender to palpation., Other (pressure ulcer in right calcaneous stage 3) Skin: Report: Other (Multiple scoriations in all body, Pressure ulcer in right calcaneous stage 3) Neuro/Psych: Report: Disoriented to name time or place, Depressed affect - Assessment Assessment: Patient is awake, alert, calm, in no acute distress. Dx: Pressure ulcer stage 3 , leukocytosis, increased in agitation, DM, COPD, Dementia. - Plan Plan: Patient will be started in IV NS, IV AB, continue with SNF meds, consult with wound care and psychiatry will be request.
[2018-10-13] MEDS ORDERED: Acetaminophen 500 MG TAB PO PRN (18:37)
[2018-10-13] MEDS ORDERED: Magnesium Hydroxide (MOM) 30 mL UDC PO PRN (18:37)
[2018-10-13] MEDS ORDERED: GLUCAGON HCl 1 MG KIT IM PRN (18:56)
[2018-10-13] MEDS ORDERED: Dextrose 50% 50 mL Abboject IVP PRN (18:56)
[2018-10-13] MEDS ORDERED: Non-Formulary Item 1 EA (Amino Acids/Protein Hydrolys [Pro-Stat Sugar Free Liquid] 30 ML) PO SCH (21:00)
[2018-10-13] MEDS ORDERED: Piperacillin Sodium/Tazobact 3.375 gm Vial IV ONE (21:44)
[2018-10-13] MEDS: Sodium Chloride 0.9% 1,000 ML IV SCH (22:08)
[2018-10-13] MEDS: Atorvastatin Calcium 10 MG TAB PO SCH (22:09)
[2018-10-13] MEDS: INSULIN LISPRO SLIDING SCALE 100 UNITS/ML UNIT SUBQ SCH (22:11)
[2018-10-13] MEDS: Insulin Glargine 100 units/ml 10ml Vial SUBQ SCH (22:12)
[2018-10-14] MEDS ORDERED: Piperacillin Sodium/Tazobact 3.375 gm Vial IV ONE (04:25)
[2018-10-14 07:10] LABS: % BASOPHILS 0.7 % (0.0-2.0); % EOSINOPHILS 4.8 % (0.0-5.0); % LYMPHOCYTES 38.5 % (20.0-50.0); % MONOCYTES 7.9 % (2.0-10.0); % NEUTROPHILS 48.1 % (40.0-80.0); EOSINOPHILE ABSOLUTE 0.3 Th/cmm (0.1-0.4); HEMATOCRIT 32.6 % (41.0-60); HEMOGLOBIN 10.5 gm/dL (12-16); LYMPHOCYTE ABSOLUTE 2.7 Th/cmm (1.5-3.0); MEAN CELL VOLUME 90.2 fl (80-99); MEAN CORPUSCULAR HEMOGLOBIN 29.1 pg (27.0-31.0); MEAN CORPUSCULAR HGB CONC 32.2 pg (28.0-36.0); MEAN PLATELET VOLUME 7.6 fl; MONOCYTE ABSOLUTE 0.6 Th/cmm (0.3-1.0); NEUTROPHILE ABSOLUTE 3.4 Th/cmm (1.8-8.0); PLATELET COUNT 248 Th/cmm (150-400); RED BLOOD COUNT 3.61 Mil/cmm (3.80-5.80)
[2018-10-14 07:26] LABS: ALB/GLOB RATIO 0.9 (1.0-1.8); ALBUMIN 3.2 gm/dL (4.2-5.5); ALKALINE PHOSPHATASE 94 U/L (34-104); ANION GAP 11.6 (7.0-16.0); BILIRUBIN,TOTAL 0.5 mg/dL (0.3-1.0); BUN - UREA NITROGEN 21 mg/dL (7-25); CALCIUM SERUM 9.1 mg/dL (8.6-10.3); CARBON DIOXIDE 26.4 mEq/L (21.0-31.0); CHLORIDE 108 mEq/L (98-107); CREATININE - SERUM 1.1 mg/dL (0.7-1.3); GLUCOSE 69 mg/dL (70-105); SGOT 17 U/L (13-39); SGPT/ALT 10 U/L (7-52); SODIUM SERUM 142 mEq/L (136-145); TOTAL PROTEIN,SERUM 6.8 gm/dL (6.0-8.3)
[2018-10-14] MEDS: INSULIN LISPRO SLIDING SCALE 100 UNITS/ML UNIT SUBQ SCH ×4 (08:46→20:50)
[2018-10-14] MEDS: Multivitamin w/ Minerals Tab PO SCH (08:58)
[2018-10-14] MEDS: Insulin Glargine 100 units/ml 10ml Vial SUBQ SCH ×2 (10:41→18:47)
[2018-10-14] MEDS: Sodium Chloride 0.9% 1,000 ML IV SCH (12:19)
--- NOTE | 2018-10-14 12:44 | General Progress Note ---
Subjective - Review of Systems Service Date: 10/14/18 Subjective: I am fine Objective - Results Result Diagrams: 10/14/18 06:30 10/14/18 06:30 Recent Labs: Laboratory Last Values WBC 7.0 Th/cmm (4.8-10.8) 10/14/18 06:30 RBC 3.61 Mil/cmm (3.80-5.80) L 10/14/18 06:30 Hgb 10.5 gm/dL (12-16) L 10/14/18 06:30 Hct 32.6 % (41.0-60) L 10/14/18 06:30 MCV 90.2 fl (80-99) 10/14/18 06:30 MCH 29.1 pg (27.0-31.0) 10/14/18 06:30 MCHC Differential 32.2 pg (28.0-36.0) 10/14/18 06:30 RDW 16.0 % (11.5-20.0) 10/14/18 06:30 Plt Count 248 Th/cmm (150-400) 10/14/18 06:30 MPV 7.6 fl 10/14/18 06:30 Neutrophils % 48.1 % (40.0-80.0) 10/14/18 06:30 Lymphocytes % 38.5 % (20.0-50.0) 10/14/18 06:30 Monocytes % 7.9 % (2.0-10.0) 10/14/18 06:30 Eosinophils % 4.8 % (0.0-5.0) 10/14/18 06:30 Basophils % 0.7 % (0.0-2.0) 10/14/18 06:30 Sodium 142 mEq/L (136-145) 10/14/18 06:30 Potassium 4.0 mEq/L (3.5-5.1) 10/14/18 06:30 Chloride 108 mEq/L (98-107) H 10/14/18 06:30 Carbon Dioxide 26.4 mEq/L (21.0-31.0) 10/14/18 06:30 Anion Gap 11.6 (7.0-16.0) 10/14/18 06:30 BUN 21 mg/dL (7-25) 10/14/18 06:30 Creatinine 1.1 mg/dL (0.7-1.3) 10/14/18 06:30 Est GFR ( Amer) TNP 10/14/18 06:30 Est GFR (Non-Af Amer) TNP 10/14/18 06:30 BUN/Creatinine Ratio 19.1 10/14/18 06:30 Glucose 69 mg/dL (70-105) L 10/14/18 06:30 Calcium 9.1 mg/dL (8.6-10.3) 10/14/18 06:30 Total Bilirubin 0.5 mg/dL (0.3-1.0) 10/14/18 06:30 AST 17 U/L (13-39) 10/14/18 06:30 ALT 10 U/L (7-52) 10/14/18 06:30 Alkaline Phosphatase 94 U/L (34-104) 10/14/18 06:30 Total Protein 6.8 gm/dL (6.0-8.3) 10/14/18 06:30 Albumin 3.2 gm/dL (4.2-5.5) L 10/14/18 06:30 Globulin 3.6 gm/dL 10/14/18 06:30 Albumin/Globulin Ratio 0.9 (1.0-1.8) L 10/14/18 06:30 TSH 7.20 uIU/ml (0.34-5.60) H 10/14/18 06:30 - Physical Exam Vitals and I&O: Vital Signs Temp 96.8 F 10/14/18 08:43 Pulse 75 10/14/18 08:43 Resp 20 10/14/18 08:43 BP 133/52 10/14/18 08:43 Pulse Ox 97 10/14/18 08:43 Intake & Output 10/13/18 10/14/18 10/14/18 18:59 06:59 18:59 Intake Total 50 1000 Balance 50 1000 Intake: Intake, IV Amount 50 1000 Piperacillin Sodium/ 50 Tazobact 3.375 gm In Sodium Chloride 0.9% 50 ml @ 100 mls/hr IV Q6H [facility] Rx#:[id number] Sodium Chloride 0.9% 1, 1000 000 ml @ 75 mls/hr IV . [id number] [facility] Rx#:[id number] Active Medications: Current Medications Acetaminophen (Tylenol Extra Strength) 500 mg PO Q6HR PRN PRN Reason: Pain (Moderate) level 4-6 Stop: 12/12/18 18:36 Acetaminophen/Hydrocodone Bitart ([place] 5mg/325mg) 1 tab PO Q4H PRN PRN Reason: Pain (Severe) LEVEL 7-10 Stop: 12/12/18 18:54 Ascorbic Acid (Vitamin C) 500 mg PO BID [facility] Stop: 12/13/18 08:59 Last Admin: 10/14/18 08:58 Dose: 500 mg Atorvastatin Calcium (Lipitor) 20 mg PO HS [facility]; Protocol Stop: 12/12/18 20:59 Last Admin: 10/13/18 22:09 Dose: 20 mg Bisacodyl (Dulcolax 10 Mg Supp) 10 mg RC DAILY PRN PRN Reason: Constipation Stop: 12/12/18 18:36 Dextrose (D50w) 50 ml IVP PRN PRN PRN Reason: Blood Glucose less than 70 Stop: 12/12/18 18:55 Last Admin: 10/14/18 07:19 Dose: 50 ml Dextrose (Glutose 40%) 18.75 gm PO PRN PRN PRN Reason: Blood Glucose less than 70 Stop: 12/12/18 18:55 Docusate Sodium (Colace) 100 mg PO BID [facility] Stop: 12/13/18 08:59 Last Admin: 10/14/18 08:58 Dose: 100 mg Glucagon (Glucagen) 1 mg IM PRN PRN PRN Reason: Blood Glucose less than 70 Stop: 12/12/18 18:55 Piperacillin Sod/Tazobactam (Sod 3.375 gm/ Sodium Chloride) 50 mls @ 100 mls/ hr IV Q6H [facility] Stop: 12/12/18 21:59 Last Admin: 10/14/18 05:00 Dose: 100 mls/hr Sodium Chloride (Nacl 0.9%) 1,000 mls @ 75 mls/hr IV .[id number] [facility] Stop: 12/12/18 18:59 Last Admin: 10/14/18 12:19 Dose: 75 mls/hr Insulin Glargine (Lantus Insulin) 20 units SUBQ BID [facility] Stop: 12/12/18 20:59 Last Admin: 10/14/18 10:41 Dose: Not Given Insulin Human Lispro (Humalog Insulin Sliding Scale) 0 units SUBQ ACHS [facility]; Protocol Stop: 12/12/18 20:59 Last Admin: 10/14/18 08:46 Dose: Not Given Levothyroxine Sodium (Synthroid) 0.025 mg PO QDAC [facility] Stop: 12/14/18 07:29 Magnesium Hydroxide (Milk Of Magnesia) 30 ml PO HS PRN PRN Reason: Constipation Stop: 12/12/18 18:36 Miscellaneous (Clinical Monitoring) 1 ea MC DAILY PRN PRN Reason: RENAL Stop: 12/12/18 21:19 Quetiapine Fumarate (Seroquel) 25 mg PO HS [facility]; Protocol Stop: 12/12/18 20:59 Last Admin: 10/13/18 22:09 Dose: 25 mg Zolpidem Tartrate (Ambien) 5 mg PO HS PRN PRN Reason: Insomnia Stop: 12/12/18 18:36 General: Alert, Other (Confused) HEENT: Atraumatic Neck: Supple Cardiovascular: Regular rate Lungs: Clear to auscultation Abdomen: Bowel sounds, Soft Extremities: Other (No edema) Skin: Other (Right calcaneous decubit ulcer stage 3) Psych/Mental Status: Other (Confused not oriented) Assessment/Plan - Assessment Assessment: Patient is awake, alert, calm, in no acute distress. WBC normal. Dx: Pressure ulcer stage 3, leukocytosis, increased in agitation, DM, COPD, Dementia. - Plan Plan: Patient will be started in IV NS, IV AB, continue with SNF meds, consult with wound care and psychiatry will be request.
--- NOTE | 2018-10-14 13:01 | Diagnostic Imaging Report ---
Right lower extremity Doppler venous ultrasound exam HISTORY: Pain/swelling Sonographic sector images were obtained through the deep venous systems of of the right leg. Associated Doppler data was obtained. The exam demonstrates patency of the common femoral, superficial femoral, popliteal, and posterior tibial veins. Specifically, no thrombus is seen. There are normal compressibility and augmentation responses. IMPRESSION: Negative exam for deep vein thrombophlebitis.
--- NOTE | 2018-10-14 13:02 | Diagnostic Imaging Report ---
Right lower extremity Doppler arterial ultrasound exam HISTORY: Right heel ulcer, ischemic vascular disease, pain Sonographic sector images were obtained through the arterial system of the right leg. Associated Doppler data was obtained. The exam demonstrates triphasic waveforms within the common femoral artery. Abnormal monophasic waveforms are noted throughout the right superficial femoral, popliteal, anterior tibial, posterior tibial, and dorsalis pedis arteries. Increase in velocity noted within the right popliteal artery and within the dorsalis pedis artery regions. The ankle-brachial index is normal (0.98). Sonographic images demonstrate mild to moderate diffuse atherosclerotic changes. However, no focal occlusion is seen. IMPRESSION: 1. Mild to moderate diffuse atherosclerotic changes
[2018-10-14] MEDS ORDERED: Probiotic Screen MC PRN (14:00)
[2018-10-14] MEDS: Hydrocodone/APAP 5mg/325mg Tab PO PRN (14:10)
[2018-10-14] MEDS ORDERED: VTE Chemical Prophylaxis Screen/Admission MC PRN (14:20)
[2018-10-14] MEDS: Levothyroxine 0.025 Mg Tab PO SCH (18:55)
--- NOTE | 2018-10-14 20:37 | Progress Notes ---
DATE: 10/14/2018 SUBJECTIVE: Staff was spoken to. The patient is interviewed. Mood is noted to be less irritable. The patient is coherent today and has been able to verbalize all the concerns. Compared to yesterday the patient is not going on a tangent. The patient is reported to have stage 3 decubitus ulcer and has to be transferred to the medical unit for further care. Coping skills at this time are noted to be very poor. The patient's sleep is noted to be poor. Appetite is noted to be improving. ASSESSMENT: The patient is still paranoid. PLAN: To continue the patient with supportive therapy and follow. JOB# [id number]
[2018-10-14] MEDS: Heparin Sod 5,000Units/ML 5,000 UNITS/ML VIAL SUBQ SCH (20:51)
[2018-10-14] MEDS: Atorvastatin Calcium 10 MG TAB PO SCH (20:51)
[2018-10-15] MEDS: Sodium Chloride 0.9% 1,000 ML IV SCH ×2 (02:07→09:35)
[2018-10-15] MEDS: INSULIN LISPRO SLIDING SCALE 100 UNITS/ML UNIT SUBQ SCH ×4 (06:41→21:36)
[2018-10-15] MEDS: Levothyroxine 0.025 Mg Tab PO SCH (06:41)
[2018-10-15] MEDS: Insulin Glargine 100 units/ml 10ml Vial SUBQ SCH ×2 (09:00→16:32)
[2018-10-15] MEDS: Venelex 60gm Tube TP SCH (09:00)
[2018-10-15] MEDS: Heparin Sod 5,000Units/ML 5,000 UNITS/ML VIAL SUBQ SCH ×2 (09:36→21:36)
[2018-10-15] MEDS: Multivitamin w/ Minerals Tab PO SCH (09:36)
[2018-10-15] MEDS: Lactobacillus Rhamnosus GG 15 Billion CFU CAP.SPRINK PO SCH (09:36)
--- NOTE | 2018-10-15 15:31 | General Progress Note ---
Subjective - Review of Systems Service Date: 10/15/18 Subjective: I am fine Objective - Results Result Diagrams: 10/14/18 06:30 10/14/18 06:30 Recent Labs: Laboratory Last Values WBC 7.0 Th/cmm (4.8-10.8) 10/14/18 06:30 RBC 3.61 Mil/cmm (3.80-5.80) L 10/14/18 06:30 Hgb 10.5 gm/dL (12-16) L 10/14/18 06:30 Hct 32.6 % (41.0-60) L 10/14/18 06:30 MCV 90.2 fl (80-99) 10/14/18 06:30 MCH 29.1 pg (27.0-31.0) 10/14/18 06:30 MCHC Differential 32.2 pg (28.0-36.0) 10/14/18 06:30 RDW 16.0 % (11.5-20.0) 10/14/18 06:30 Plt Count 248 Th/cmm (150-400) 10/14/18 06:30 MPV 7.6 fl 10/14/18 06:30 Neutrophils % 48.1 % (40.0-80.0) 10/14/18 06:30 Lymphocytes % 38.5 % (20.0-50.0) 10/14/18 06:30 Monocytes % 7.9 % (2.0-10.0) 10/14/18 06:30 Eosinophils % 4.8 % (0.0-5.0) 10/14/18 06:30 Basophils % 0.7 % (0.0-2.0) 10/14/18 06:30 Sodium 142 mEq/L (136-145) 10/14/18 06:30 Potassium 4.0 mEq/L (3.5-5.1) 10/14/18 06:30 Chloride 108 mEq/L (98-107) H 10/14/18 06:30 Carbon Dioxide 26.4 mEq/L (21.0-31.0) 10/14/18 06:30 Anion Gap 11.6 (7.0-16.0) 10/14/18 06:30 BUN 21 mg/dL (7-25) 10/14/18 06:30 Creatinine 1.1 mg/dL (0.7-1.3) 10/14/18 06:30 Est GFR ( Amer) TNP 10/14/18 06:30 Est GFR (Non-Af Amer) TNP 10/14/18 06:30 BUN/Creatinine Ratio 19.1 10/14/18 06:30 Glucose 69 mg/dL (70-105) L 10/14/18 06:30 POC Glucose 118 MG/DL (70 - 105) H 10/15/18 05:26 Calcium 9.1 mg/dL (8.6-10.3) 10/14/18 06:30 Total Bilirubin 0.5 mg/dL (0.3-1.0) 10/14/18 06:30 AST 17 U/L (13-39) 10/14/18 06:30 ALT 10 U/L (7-52) 10/14/18 06:30 Alkaline Phosphatase 94 U/L (34-104) 10/14/18 06:30 Total Protein 6.8 gm/dL (6.0-8.3) 10/14/18 06:30 Albumin 3.2 gm/dL (4.2-5.5) L 10/14/18 06:30 Globulin 3.6 gm/dL 10/14/18 06:30 Albumin/Globulin Ratio 0.9 (1.0-1.8) L 10/14/18 06:30 TSH 7.20 uIU/ml (0.34-5.60) H 10/14/18 06:30 - Physical Exam Vitals and I&O: Vital Signs Temp 98.8 F 10/15/18 11:56 Pulse 78 10/15/18 11:56 Resp 18 10/15/18 11:56 BP 103/47 10/15/18 11:56 Pulse Ox 98 10/15/18 11:56 Intake & Output 10/14/18 10/15/18 10/15/18 18:59 06:59 18:59 Intake Total 1470 1220 Balance 1470 1220 Weight (lbs) 70.307 kg 70.307 kg 70.307 kg Intake: Intake, IV Amount 1050 1100 Piperacillin Sodium/ 50 100 Tazobact 3.375 gm In Sodium Chloride 0.9% 50 ml @ 100 mls/hr IV Q6H [facility] Rx#:[id number] Sodium Chloride 0.9% 1, 1000 1000 000 ml @ 75 mls/hr IV . [id number] [facility] Rx#:[id number] Oral 420 120 Other: # Voids 2 3 # Bowel Movements 0 Weight Source Estimated Bedscale Bedscale Active Medications: Current Medications Acetaminophen (Tylenol Extra Strength) 500 mg PO Q6HR PRN PRN Reason: Pain (Moderate) level 4-6 Stop: 12/12/18 18:36 Acetaminophen/Hydrocodone Bitart ([place] 5mg/325mg) 1 tab PO Q4H PRN PRN Reason: Pain (Severe) LEVEL 7-10 Stop: 12/12/18 18:54 Last Admin: 10/14/18 14:10 Dose: 1 tab Ascorbic Acid (Vitamin C) 500 mg PO BID [facility] Stop: 12/13/18 08:59 Last Admin: 10/15/18 09:36 Dose: 500 mg Atorvastatin Calcium (Lipitor) 20 mg PO HS [facility]; Protocol Stop: 12/12/18 20:59 Last Admin: 10/14/18 20:51 Dose: 20 mg Bisacodyl (Dulcolax 10 Mg Supp) 10 mg RC DAILY PRN PRN Reason: Constipation Stop: 12/12/18 18:36 [place] Oil/[place] Balsam/Trypsin (Venelex) 1 appl TP DAILY [facility] Stop: 12/14/18 08:59 Last Admin: 10/15/18 09:00 Dose: 1 appl Dextrose (D50w) 50 ml IVP PRN PRN PRN Reason: Blood Glucose less than 70 Stop: 12/12/18 18:55 Last Admin: 10/14/18 07:19 Dose: 50 ml Dextrose (Glutose 40%) 18.75 gm PO PRN PRN PRN Reason: Blood Glucose less than 70 Stop: 12/12/18 18:55 Docusate Sodium (Colace) 100 mg PO BID [facility] Stop: 12/13/18 08:59 Last Admin: 10/15/18 09:36 Dose: 100 mg Glucagon (Glucagen) 1 mg IM PRN PRN PRN Reason: Blood Glucose less than 70 Stop: 12/12/18 18:55 Heparin Sodium (Porcine) (Heparin) 5,000 units SUBQ Q12H [facility] Stop: 12/13/18 20:59 Last Admin: 10/15/18 09:36 Dose: 5,000 units Piperacillin Sod/Tazobactam (Sod 3.375 gm/ Sodium Chloride) 50 mls @ 100 mls/ hr IV Q6H [facility] Stop: 12/12/18 21:59 Last Admin: 10/15/18 09:35 Dose: 100 mls/hr Sodium Chloride (Nacl 0.9%) 1,000 mls @ 75 mls/hr IV .[id number] [facility] Stop: 12/12/18 18:59 Last Admin: 10/15/18 09:35 Dose: Not Given Insulin Glargine (Lantus Insulin) 20 units SUBQ BID [facility] Stop: 12/12/18 20:59 Last Admin: 10/15/18 09:00 Dose: Not Given Insulin Human Lispro (Humalog Insulin Sliding Scale) 0 units SUBQ ACHS [facility]; Protocol Stop: 12/12/18 20:59 Last Admin: 10/15/18 11:30 Dose: Not Given Lactobacillus Rhamnosus (Culturelle 15b) 1 each PO DAILY [facility] Stop: 12/14/18 08:59 Last Admin: 10/15/18 09:36 Dose: 1 each Levothyroxine Sodium (Synthroid) 0.025 mg PO QDAC [facility] Stop: 12/13/18 15:59 Last Admin: 10/15/18 06:41 Dose: 0.025 mg Magnesium Hydroxide (Milk Of Magnesia) 30 ml PO HS PRN PRN Reason: Constipation Stop: 12/12/18 18:36 Miscellaneous (Clinical Monitoring) 1 ea MC DAILY PRN PRN Reason: RENAL Stop: 12/12/18 21:19 Miscellaneous (Probiotic Screen) 1 ea MC PRN PRN PRN Reason: PROTOCOL Stop: 12/13/18 13:59 Miscellaneous (Vte Chemical Prophylaxis Screen/ Admission) 1 ea MC PRN PRN PRN Reason: PROTOCOL Stop: 12/13/18 14:19 Quetiapine Fumarate (Seroquel) 25 mg PO HS [facility]; Protocol Stop: 12/12/18 20:59 Last Admin: 10/14/18 20:50 Dose: 25 mg Zolpidem Tartrate (Ambien) 5 mg PO HS PRN PRN Reason: Insomnia Stop: 12/12/18 18:36 General: Alert, Other (Confused) HEENT: Atraumatic Neck: Supple Cardiovascular: Regular rate Lungs: Clear to auscultation Abdomen: Bowel sounds, Soft Extremities: Other (No edema) Skin: Other (Right calcaneous decubit ulcer stage 3) Psych/Mental Status: Other (Confused not oriented) Assessment/Plan - Assessment Assessment: Patient is awake, alert, calm, in no acute distress. WBC normal. Dx: Pressure ulcer stage 3, leukocytosis, increased in agitation, DM, COPD, Dementia. - Plan Plan: Patient will be started in IV NS, IV AB, continue with SNF meds, already seen by wound care and psychiatry. Will continue to monitor. Nutritional Asmnt/Malnutr-PDOC - Dietary Evaluation Malnutrition Findings (Please click <Entered> for more info): Nutritional Asmnt/Malnutrition Start: 10/14/18 18: 13 Text: Status: Complete Freq: Protocol: Document 10/14/18 18:19 LCHENG (Rec: 10/14/18 18:31 [email or web address] [id number]) Nutritional Asmnt/Malnutrition Patient General Information Nutritional Screening High Risk Consult Diagnosis ostomilitis, elevated WBC Pertinent Medical Hx/Surgical Hx COPD, psychosis, depression, dementia, DM, decubitus ulcer Subjective Information Pt seen sitting on bed having lunch, somewhat confused. Consult received for many wounds. Noticed pt has few teeth, but pt refused any chewing or swallowing problem. Per EMR, pt ate 1005 of breakfast today. Current Diet Order/ [facility] Pertinent Medications vit C, lipitor, colace, lantus , humalog, culturelle, synthroid, piperacillin, seroquel, nacl 0.9% Pertinent Labs 10/14 Cl 108, Glucose 69, alb 3 .2 Nutritional Hx/Data Height 1.68 m Height (Calculated Centimeters) 167.6 Current Weight (lbs) 70.307 kg Weight (Calculated Kilograms) 70.3 Weight (Calculated Grams) [address].8 [place] Body Weight 142 Body Mass Index (BMI) 25.0 Weight Status Overweight GI Symptoms GI Symptoms None Last BM not indicated Skin Integrity/Comment: Unstageable pressure ulcer to Right lateral foot at fifth metatarsal head and Right lateral foot, mid border, 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 Problem Problem increased nutrition needs Etiology impaired skin integrity Signs/Symptoms: pressure ulcer multiple sites 1. Problem Problem altered nutrition related labs Etiology hx of Dm Signs/Symptoms: glucose 69 Malnutrition Alert Is there a minimum of two criteria No selected? Query Text:Check all the applicable criteria. A minimum of two criteria are recommended for diagnosis of either severe or non-severe malnutrition. Malnutrition Related to Morbid Obesity Malnutrition related to morbid obesity No Intervention/Recommendation Comments 1. Continue with CCHO 45gm diet as ordered. Recommend adjust to CCHO 60gm to better meet increased kcal needs. Add Rafy BID for wound healing 2. Monitor PO intake, wt, labs and skin integrity 3. F/U as moderate risk in 3-5 days Expected Outcomes/Goals Expected Outcomes/Goals 1. PO intake to meet at least 75% of nutritional needs. 2. Wt stability, skin to remain intact, labs to approach WNL.
[2018-10-15] MEDS: Atorvastatin Calcium 10 MG TAB PO SCH (21:36)
[2018-10-16] MEDS: Sodium Chloride 0.9% 1,000 ML IV SCH ×2 (05:34→17:48)
[2018-10-16] MEDS: Levothyroxine 0.025 Mg Tab PO SCH (06:30)
[2018-10-16] MEDS: INSULIN LISPRO SLIDING SCALE 100 UNITS/ML UNIT SUBQ SCH ×4 (06:30→21:52)
[2018-10-16 08:11] LABS: % BASOPHILS 0.2 % (0.0-2.0); % EOSINOPHILS 3.2 % (0.0-5.0); % LYMPHOCYTES 31.6 % (20.0-50.0); % MONOCYTES 8.2 % (2.0-10.0); % NEUTROPHILS 56.8 % (40.0-80.0); EOSINOPHILE ABSOLUTE 0.3 Th/cmm (0.1-0.4); HEMATOCRIT 31.9 % (41.0-60); HEMOGLOBIN 10.4 gm/dL (12-16); LYMPHOCYTE ABSOLUTE 2.6 Th/cmm (1.5-3.0); MEAN CELL VOLUME 89.2 fl (80-99); MEAN CORPUSCULAR HGB CONC 32.5 pg (28.0-36.0); MEAN PLATELET VOLUME 7.5 fl; MONOCYTE ABSOLUTE 0.7 Th/cmm (0.3-1.0); NEUTROPHILE ABSOLUTE 4.6 Th/cmm (1.8-8.0); PLATELET COUNT 265 Th/cmm (150-400); RED BLOOD COUNT 3.57 Mil/cmm (3.80-5.80); WHITE BLOOD COUNT 8.2 Th/cmm (4.8-10.8)
[2018-10-16 08:23] LABS: ALB/GLOB RATIO 0.9 (1.0-1.8); ALBUMIN 3.1 gm/dL (4.2-5.5); ALKALINE PHOSPHATASE 83 U/L (34-104); ANION GAP 11.7 (7.0-16.0); BILIRUBIN,TOTAL 0.4 mg/dL (0.3-1.0); BUN - UREA NITROGEN 17 mg/dL (7-25); CHLORIDE 106 mEq/L (98-107); GLUCOSE 99 mg/dL (70-105); POTASSIUM SERUM 3.7 mEq/L (3.5-5.1); SGOT 17 U/L (13-39); SGPT/ALT 11 U/L (7-52); SODIUM SERUM 137 mEq/L (136-145); TOTAL PROTEIN,SERUM 6.7 gm/dL (6.0-8.3)
[2018-10-16] MEDS: Lactobacillus Rhamnosus GG 15 Billion CFU CAP.SPRINK PO SCH (09:29)
[2018-10-16] MEDS: Multivitamin w/ Minerals Tab PO SCH (09:30)
[2018-10-16] MEDS: Heparin Sod 5,000Units/ML 5,000 UNITS/ML VIAL SUBQ SCH ×2 (09:30→21:55)
[2018-10-16] MEDS: Insulin Glargine 100 units/ml 10ml Vial SUBQ SCH ×2 (09:38→18:00)
--- NOTE | 2018-10-16 12:31 | General Progress Note ---
Subjective - Review of Systems Service Date: 10/16/18 Subjective: I am fine Objective - Results Result Diagrams: 10/16/18 07:40 10/16/18 07:40 Recent Labs: Laboratory Last Values WBC 8.2 Th/cmm (4.8-10.8) 10/16/18 07:40 RBC 3.57 Mil/cmm (3.80-5.80) L 10/16/18 07:40 Hgb 10.4 gm/dL (12-16) L 10/16/18 07:40 Hct 31.9 % (41.0-60) L 10/16/18 07:40 MCV 89.2 fl (80-99) 10/16/18 07:40 MCH 29.0 pg (27.0-31.0) 10/16/18 07:40 MCHC Differential 32.5 pg (28.0-36.0) 10/16/18 07:40 RDW 16.0 % (11.5-20.0) 10/16/18 07:40 Plt Count 265 Th/cmm (150-400) 10/16/18 07:40 MPV 7.5 fl 10/16/18 07:40 Neutrophils % 56.8 % (40.0-80.0) 10/16/18 07:40 Lymphocytes % 31.6 % (20.0-50.0) 10/16/18 07:40 Monocytes % 8.2 % (2.0-10.0) 10/16/18 07:40 Eosinophils % 3.2 % (0.0-5.0) 10/16/18 07:40 Basophils % 0.2 % (0.0-2.0) 10/16/18 07:40 Sodium 137 mEq/L (136-145) 10/16/18 07:40 Potassium 3.7 mEq/L (3.5-5.1) 10/16/18 07:40 Chloride 106 mEq/L (98-107) 10/16/18 07:40 Carbon Dioxide 23.0 mEq/L (21.0-31.0) 10/16/18 07:40 Anion Gap 11.7 (7.0-16.0) 10/16/18 07:40 BUN 17 mg/dL (7-25) 10/16/18 07:40 Creatinine 1.0 mg/dL (0.7-1.3) 10/16/18 07:40 Est GFR ( Amer) TNP 10/16/18 07:40 Est GFR (Non-Af Amer) TNP 10/16/18 07:40 BUN/Creatinine Ratio 17.0 10/16/18 07:40 Glucose 99 mg/dL (70-105) 10/16/18 07:40 POC Glucose 142 MG/DL (70 - 105) H 10/16/18 09:37 Calcium 9.0 mg/dL (8.6-10.3) 10/16/18 07:40 Total Bilirubin 0.4 mg/dL (0.3-1.0) 10/16/18 07:40 AST 17 U/L (13-39) 10/16/18 07:40 ALT 11 U/L (7-52) 10/16/18 07:40 Alkaline Phosphatase 83 U/L (34-104) 10/16/18 07:40 Total Protein 6.7 gm/dL (6.0-8.3) 10/16/18 07:40 Albumin 3.1 gm/dL (4.2-5.5) L 10/16/18 07:40 Globulin 3.6 gm/dL 10/16/18 07:40 Albumin/Globulin Ratio 0.9 (1.0-1.8) L 10/16/18 07:40 TSH 7.20 uIU/ml (0.34-5.60) H 10/14/18 06:30 - Physical Exam Vitals and I&O: Vital Signs Temp 97.1 F 10/16/18 08:00 Pulse 123 10/16/18 08:00 Resp 18 10/16/18 08:00 BP 119/84 10/16/18 08:00 Pulse Ox 97 10/16/18 08:00 Intake & Output 10/15/18 10/16/18 10/16/18 18:59 06:59 18:59 Intake Total 1400 200 Balance 1400 200 Weight (lbs) 70.307 kg 70.307 kg Intake: Intake, IV Amount 1100 100 Piperacillin Sodium/ 100 100 Tazobact 3.375 gm In Sodium Chloride 0.9% 50 ml @ 100 mls/hr IV Q6H [facility] Rx#:[id number] Sodium Chloride 0.9% 1, 1000 000 ml @ 75 mls/hr IV . [id number] [facility] Rx#:[id number] Oral 300 100 Other: # Voids 2 # Bowel Movements 2 Weight Source Bedscale Bedscale Active Medications: Current Medications Acetaminophen (Tylenol Extra Strength) 500 mg PO Q6HR PRN PRN Reason: Pain (Moderate) level 4-6 Stop: 12/12/18 18:36 Acetaminophen/Hydrocodone Bitart ([place] 5mg/325mg) 1 tab PO Q4H PRN PRN Reason: Pain (Severe) LEVEL 7-10 Stop: 12/12/18 18:54 Last Admin: 10/14/18 14:10 Dose: 1 tab Ascorbic Acid (Vitamin C) 500 mg PO BID [facility] Stop: 12/13/18 08:59 Last Admin: 10/16/18 09:29 Dose: 500 mg Atorvastatin Calcium (Lipitor) 20 mg PO HS [facility]; Protocol Stop: 12/12/18 20:59 Last Admin: 10/15/18 21:36 Dose: 20 mg Bisacodyl (Dulcolax 10 Mg Supp) 10 mg RC DAILY PRN PRN Reason: Constipation Stop: 12/12/18 18:36 [place] Oil/[place] Balsam/Trypsin (Venelex) 1 appl TP DAILY [facility] Stop: 12/14/18 08:59 Last Admin: 10/15/18 09:00 Dose: 1 appl Dextrose (D50w) 50 ml IVP PRN PRN PRN Reason: Blood Glucose less than 70 Stop: 12/12/18 18:55 Last Admin: 10/14/18 07:19 Dose: 50 ml Dextrose (Glutose 40%) 18.75 gm PO PRN PRN PRN Reason: Blood Glucose less than 70 Stop: 12/12/18 18:55 Docusate Sodium (Colace) 100 mg PO BID [facility] Stop: 12/13/18 08:59 Last Admin: 10/16/18 09:34 Dose: Not Given Glucagon (Glucagen) 1 mg IM PRN PRN PRN Reason: Blood Glucose less than 70 Stop: 12/12/18 18:55 Heparin Sodium (Porcine) (Heparin) 5,000 units SUBQ Q12H [facility] Stop: 12/13/18 20:59 Last Admin: 10/16/18 09:30 Dose: 5,000 units Piperacillin Sod/Tazobactam (Sod 3.375 gm/ Sodium Chloride) 50 mls @ 100 mls/ hr IV Q6H [facility] Stop: 12/12/18 21:59 Last Infusion: 10/16/18 04:34 Dose: Infused Sodium Chloride (Nacl 0.9%) 1,000 mls @ 75 mls/hr IV .[id number] [facility] Stop: 12/12/18 18:59 Last Admin: 10/16/18 05:34 Dose: 75 mls/hr Insulin Glargine (Lantus Insulin) 20 units SUBQ BID [facility] Stop: 12/12/18 20:59 Last Admin: 10/16/18 09:38 Dose: 20 100 Insulin Human Lispro (Humalog Insulin Sliding Scale) 0 units SUBQ ACHS [facility]; Protocol Stop: 12/12/18 20:59 Last Admin: 10/16/18 06:30 Dose: Not Given Lactobacillus Rhamnosus (Culturelle 15b) 1 each PO DAILY [facility] Stop: 12/14/18 08:59 Last Admin: 10/16/18 09:29 Dose: 1 each Levothyroxine Sodium (Synthroid) 0.025 mg PO QDAC [facility] Stop: 12/13/18 15:59 Last Admin: 10/16/18 06:30 Dose: 0.025 mg Magnesium Hydroxide (Milk Of Magnesia) 30 ml PO HS PRN PRN Reason: Constipation Stop: 12/12/18 18:36 Miscellaneous (Clinical Monitoring) 1 ea MC DAILY PRN PRN Reason: RENAL Stop: 12/12/18 21:19 Miscellaneous (Probiotic Screen) 1 ea PRN PRN PRN Reason: PROTOCOL Stop: 12/13/18 13:59 Miscellaneous (Vte Chemical Prophylaxis Screen/ Admission) 1 ea PRN PRN PRN Reason: PROTOCOL Stop: 12/13/18 14:19 Quetiapine Fumarate (Seroquel) 25 mg PO HS [facility]; Protocol Stop: 12/12/18 20:59 Last Admin: 10/15/18 21:36 Dose: 25 mg Zolpidem Tartrate (Ambien) 5 mg PO HS PRN PRN Reason: Insomnia Stop: 12/12/18 18:36 General: Alert, Other (Confused) HEENT: Atraumatic Neck: Supple Cardiovascular: Regular rate Lungs: Clear to auscultation Abdomen: Bowel sounds, Soft Extremities: Other (No edema) Skin: Other (Right calcaneous decubit ulcer stage 3) Psych/Mental Status: Other (Confused not oriented) Assessment/Plan - Assessment Assessment: Patient is awake, alert, calm, in no acute distress. WBC normal. Dx: Pressure ulcer stage 3, leukocytosis, increased in agitation, DM, COPD, Dementia. - Plan Plan: Patient will be started in IV NS, IV AB, continue with SNF meds, already seen by wound care and psychiatry. Will continue to monitor. Nutritional Asmnt/Malnutr-PDOC - Dietary Evaluation Malnutrition Findings (Please click <Entered> for more info): Nutritional Asmnt/Malnutrition Start: 10/14/18 18: 13 Text: Status: Complete Freq: Protocol: Document 10/14/18 18:19 LCHENG (Rec: 10/14/18 18:31 [email or web address] [id number]) Nutritional Asmnt/Malnutrition Patient General Information Nutritional Screening High Risk Consult Diagnosis ostomilitis, elevated WBC Pertinent Medical Hx/Surgical Hx COPD, psychosis, depression, dementia, DM, decubitus ulcer Subjective Information Pt seen sitting on bed having lunch, somewhat confused. Consult received for many wounds. Noticed pt has few teeth, but pt refused any chewing or swallowing problem. Per EMR, pt ate 1005 of breakfast today. Current Diet Order/ Nutrition Support [facility] 45gm Pertinent Medications vit C, lipitor, colace, lantus , humalog, culturelle, synthroid, piperacillin, seroquel, nacl 0.9% Pertinent Labs 10/14 Cl 108, Glucose 69, alb 3 .2 Nutritional Hx/Data Height 1.68 m Height (Calculated Centimeters) 167.6 Current Weight (lbs) 70.307 kg Weight (Calculated Kilograms) 70.3 Weight (Calculated Grams) 79020.8 [place] Body Weight 142 Body Mass Index (BMI) 25.0 Weight Status Overweight GI Symptoms GI Symptoms None Last BM not indicated Skin Integrity/Comment: Unstageable pressure ulcer to Right lateral foot at fifth metatarsal head and Right lateral foot, mid border, 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 Problem Problem increased nutrition needs Etiology impaired skin integrity Signs/Symptoms: pressure ulcer multiple sites 1. Problem Problem altered nutrition related labs Etiology hx of Dm Signs/Symptoms: glucose 69 Malnutrition Alert Is there a minimum of two criteria No selected? Query Text:Check all the applicable criteria. A minimum of two criteria are recommended for diagnosis of either severe or non-severe malnutrition. Malnutrition Related to Morbid Obesity Malnutrition related to morbid obesity No Intervention/Recommendation Comments 1. Continue with CCHO 45gm diet as ordered. Recommend adjust to CCHO 60gm to better meet increased kcal needs. Add Rafy BID for wound healing 2. Monitor PO intake, wt, labs and skin integrity 3. F/U as moderate risk in 3-5 days Expected Outcomes/Goals Expected Outcomes/Goals 1. PO intake to meet at least 75% of nutritional needs. 2. Wt stability, skin to remain intact, labs to approach WNL.
[2018-10-16] MEDS: Venelex 60gm Tube TP SCH (14:56)
--- NOTE | 2018-10-16 16:35 | Psychiatric Evaluation ---
DATE OF SERVICE: 10/16/2018 PSYCHIATRIC CONSULTATION SUBJECTIVE: Staff was spoken to. The patient is interviewed. Mood is noted to be less irritable. Affect is appropriate. The patient's insight and judgment are noted to be still improving. Impulse control seems to be fair. The patient has paranoid delusions, but denies any command hallucinations. No side effects to the medications are noted at this time. ASSESSMENT: The patient is still impulsive, but no major behavioral problems are noted. PLAN: To continue the patient with the supportive therapy. I encouraged the patient to verbalize the concerns rather than to act out. JOB# [id number]
[2018-10-16] MEDS: Atorvastatin Calcium 10 MG TAB PO SCH (21:54)
[2018-10-16] MEDS: Hydrocodone/APAP 5mg/325mg Tab PO PRN (22:17)
[2018-10-17 06:35] LABS: % BASOPHILS 0.7 % (0.0-2.0); % EOSINOPHILS 4.5 % (0.0-5.0); % LYMPHOCYTES 35.9 % (20.0-50.0); % MONOCYTES 10.1 % (2.0-10.0); % NEUTROPHILS 48.8 % (40.0-80.0); BASOPHILE ABSOLUTE 0.1 Th/cumm (0-0.2); EOSINOPHILE ABSOLUTE 0.3 Th/cmm (0.1-0.4); HEMATOCRIT 31.5 % (41.0-60); HEMOGLOBIN 10.2 gm/dL (12-16); LYMPHOCYTE ABSOLUTE 2.8 Th/cmm (1.5-3.0); MEAN CELL VOLUME 89.8 fl (80-99); MEAN CORPUSCULAR HEMOGLOBIN 29.2 pg (27.0-31.0); MEAN CORPUSCULAR HGB CONC 32.5 pg (28.0-36.0); MEAN PLATELET VOLUME 7.3 fl; MONOCYTE ABSOLUTE 0.8 Th/cmm (0.3-1.0); NEUTROPHILE ABSOLUTE 3.7 Th/cmm (1.8-8.0); PLATELET COUNT 246 Th/cmm (150-400); RED CELL DISTRIBUTION WIDTH 15.8 % (11.5-20.0); WHITE BLOOD COUNT 7.7 Th/cmm (4.8-10.8)
[2018-10-17] MEDS: Levothyroxine 0.025 Mg Tab PO SCH (06:36)
[2018-10-17 06:56] LABS: ALB/GLOB RATIO 0.9 (1.0-1.8); ALBUMIN 3.1 gm/dL (4.2-5.5); ALKALINE PHOSPHATASE 85 U/L (34-104); ANION GAP 13.1 (7.0-16.0); BILIRUBIN,TOTAL 0.3 mg/dL (0.3-1.0); BUN - UREA NITROGEN 16 mg/dL (7-25); CALCIUM SERUM 8.9 mg/dL (8.6-10.3); CARBON DIOXIDE 22.7 mEq/L (21.0-31.0); CHLORIDE 109 mEq/L (98-107); GLUCOSE 115 mg/dL (70-105); POTASSIUM SERUM 3.8 mEq/L (3.5-5.1); SGOT 16 U/L (13-39); SGPT/ALT 11 U/L (7-52); SODIUM SERUM 141 mEq/L (136-145); TOTAL PROTEIN,SERUM 6.7 gm/dL (6.0-8.3)
[2018-10-17] MEDS: INSULIN LISPRO SLIDING SCALE 100 UNITS/ML UNIT SUBQ SCH ×2 (07:09→12:16)
--- NOTE | 2018-10-17 08:38 | Discharge Summary ---
General Discharge Summary - Discharge Summary Date of Admission: 10/13/18 Admitting Diagnosis: Increased in agitation, Pressure ulcer stage 3, Leukocytosis, DM, COPD, Discharge Date: 10/17/18 Discharge Diagnosis: Pressure ulcer stage 3, Increased in agitation stable, Leukocytosis resolved, DM stable, COPD stable, Dementia stable. Laboratory Findings: Laboratory Results - last 24 hr 10/16/18 10/16/18 10/17/18 09:37 21:32 06:15 WBC 7.7 RBC 3.50 L Hgb 10.2 L Hct 31.5 L MCV 89.8 MCH 29.2 MCHC Differential 32.5 RDW 15.8 Plt Count 246 MPV 7.3 Neutrophils % 48.8 Lymphocytes % 35.9 Monocytes % 10.1 H Eosinophils % 4.5 Basophils % 0.7 Sodium Potassium Chloride Carbon Dioxide Anion Gap BUN Creatinine Est GFR ( Amer) Est GFR (Non-Af Amer) BUN/Creatinine Ratio Glucose POC Glucose 142 H 268 H Calcium Total Bilirubin AST ALT Alkaline Phosphatase Total Protein Albumin Globulin Albumin/Globulin Ratio 10/17/18 10/17/18 06:15 06:26 WBC RBC Hgb Hct MCV MCH MCHC Differential RDW Plt Count MPV Neutrophils % Lymphocytes % Monocytes % Eosinophils % Basophils % Sodium 141 Potassium 3.8 Chloride 109 H Carbon Dioxide 22.7 Anion Gap 13.1 BUN 16 Creatinine 1.0 Est GFR ( Amer) TNP Est GFR (Non-Af Amer) TNP BUN/Creatinine Ratio 16.0 Glucose 115 H POC Glucose 103 Calcium 8.9 Total Bilirubin 0.3 AST 16 ALT 11 Alkaline Phosphatase 85 Total Protein 6.7 Albumin 3.1 L Globulin 3.6 Albumin/Globulin Ratio 0.9 L Hospital Course: Patient responded to treatment, he is calm, in no acute distress. Pressure ulcer improving. Treatment: He was started in IV NS, IV AB, Wound treatment, and continue with SNF meds. Patient follow by Psychiatry. Condition at Discharge: Stable Disposition: Discharge/Transfered to SNF Home Medications: Home Medication Medication Instructions Recorded Type Acetaminophen [Tylenol Extra 500 mg PO Q6HR PRN 10/12/18 History Strength] Amino Acids/Protein Hydrolys 30 ml PO TID 10/12/18 History [Pro-Stat Sugar Free Liquid] Ascorbic Acid [Vitamin C] 500 mg PO BID 10/12/18 History Bisacodyl [Dulcolax 10 Mg Supp] 10 mg RC DAILY PRN 10/12/18 History Divalproex Sodium 125 mg PO BID 10/12/18 History Hydrocodone/Acetaminophen [[place] 1 each PO Q4H PRN 10/12/18 History 5-325 Tablet] Insulin Glargine [Lantus Insulin] 20 units SUBQ BID 10/12/18 History Magnesium Hydroxide [Milk of 30 ml PO HS PRN 10/12/18 History Magnesia] Multivitamin w/ Minerals 1 tab PO DAILY 10/12/18 History [Theragran M] Potassium Chloride ER [Klor-Con] 10 meq PO DAILY 10/12/18 History QUEtiapine Fumarate [SEROquel] 25 mg PO HS 10/12/18 History Atorvastatin Calcium [Lipitor] 20 mg PO HS tab 10/13/18 Rx Dextrose 50% [D50w] 50 ml IVP PRN PRN syr 10/13/18 Rx Dextrose Oral Gel [Glutose 40%] 18.75 gm PO PRN PRN tube 10/13/18 Rx Docusate Sodium [Colace] 100 mg PO BID cap 10/13/18 Rx GLUCAGON HCl [Glucagen] 1 mg IM PRN PRN kit 10/13/18 Rx Insulin Lispro Sliding Scale See Protocol SUBQ ACHS unit 10/13/18 Rx [humaLOG INSULIN SLIDING SCALE] Lorazepam [Ativan] 0.5 mg PO Q4HR PRN tab 10/13/18 Rx Zolpidem Tartrate [Ambien] 5 mg PO HS PRN tab 10/13/18 Rx Inpatient Medications: Current Medications Acetaminophen (Tylenol Extra Strength) 500 mg PO Q6HR PRN PRN Reason: Pain (Moderate) level 4-6 Stop: 12/12/18 18:36 Acetaminophen/Hydrocodone Bitart ([place] 5mg/325mg) 1 tab PO Q4H PRN PRN Reason: Pain (Severe) LEVEL 7-10 Stop: 12/12/18 18:54 Last Admin: 10/16/18 22:17 Dose: 1 tab Ascorbic Acid (Vitamin C) 500 mg PO BID [facility] Stop: 12/13/18 08:59 Last Admin: 10/16/18 17:47 Dose: 500 mg Atorvastatin Calcium (Lipitor) 20 mg PO HS [facility]; Protocol Stop: 12/12/18 20:59 Last Admin: 10/16/18 21:54 Dose: 20 mg Bisacodyl (Dulcolax 10 Mg Supp) 10 mg RC DAILY PRN PRN Reason: Constipation Stop: 12/12/18 18:36 [place] Oil/[place] Balsam/Trypsin (Venelex) 1 appl TP DAILY [facility] Stop: 12/14/18 08:59 Last Admin: 10/16/18 14:56 Dose: 1 appl Dextrose (D50w) 50 ml IVP PRN PRN PRN Reason: Blood Glucose less than 70 Stop: 12/12/18 18:55 Last Admin: 10/14/18 07:19 Dose: 50 ml Dextrose (Glutose 40%) 18.75 gm PO PRN PRN PRN Reason: Blood Glucose less than 70 Stop: 12/12/18 18:55 Docusate Sodium (Colace) 100 mg PO BID [facility] Stop: 12/13/18 08:59 Last Admin: 10/16/18 18:01 Dose: Not Given Glucagon (Glucagen) 1 mg IM PRN PRN PRN Reason: Blood Glucose less than 70 Stop: 12/12/18 18:55 Heparin Sodium (Porcine) (Heparin) 5,000 units SUBQ Q12H [facility] Stop: 12/13/18 20:59 Last Admin: 10/16/18 21:55 Dose: 5,000 units Piperacillin Sod/Tazobactam (Sod 3.375 gm/ Sodium Chloride) 50 mls @ 100 mls/ hr IV Q6H [facility] Stop: 12/12/18 21:59 Last Admin: 10/17/18 04:01 Dose: 100 mls/hr Sodium Chloride (Nacl 0.9%) 1,000 mls @ 75 mls/hr IV .[id number] [facility] Stop: 12/12/18 18:59 Last Admin: 10/16/18 17:48 Dose: 75 mls/hr Insulin Glargine (Lantus Insulin) 20 units SUBQ BID [facility] Stop: 12/12/18 20:59 Last Admin: 10/16/18 18:00 Dose: Not Given Insulin Human Lispro (Humalog Insulin Sliding Scale) 0 units SUBQ ACHS [facility]; Protocol Stop: 12/12/18 20:59 Last Admin: 10/17/18 07:09 Dose: Not Given Lactobacillus Rhamnosus (Culturelle 15b) 1 each PO DAILY [facility] Stop: 12/14/18 08:59 Last Admin: 10/16/18 09:29 Dose: 1 each Levothyroxine Sodium (Synthroid) 0.025 mg PO QDAC [facility] Stop: 12/13/18 15:59 Last Admin: 10/17/18 06:36 Dose: 0.025 mg Magnesium Hydroxide (Milk Of Magnesia) 30 ml PO HS PRN PRN Reason: Constipation Stop: 12/12/18 18:36 Miscellaneous (Clinical Monitoring) 1 ea MC DAILY PRN PRN Reason: RENAL Stop: 12/12/18 21:19 Miscellaneous (Probiotic Screen) 1 ea MC PRN PRN PRN Reason: PROTOCOL Stop: 12/13/18 13:59 Miscellaneous (Vte Chemical Prophylaxis Screen/ Admission) 1 ea MC PRN PRN PRN Reason: PROTOCOL Stop: 12/13/18 14:19 Quetiapine Fumarate (Seroquel) 25 mg PO HS [facility]; Protocol Stop: 12/12/18 20:59 Last Admin: 10/16/18 21:55 Dose: 25 mg Zolpidem Tartrate (Ambien) 5 mg PO HS PRN PRN Reason: Insomnia Stop: 12/12/18 18:36 Activity: Bed Rest Discharge Diet: Consistent Carbohydrate Consults and Follow-Up: Micah Berger [Primary Care Provider] - Consulting Speciality: Surgery (PCP)
[2018-10-17] MEDS: Lactobacillus Rhamnosus GG 15 Billion CFU CAP.SPRINK PO SCH (08:58)
[2018-10-17] MEDS: Multivitamin w/ Minerals Tab PO SCH (08:59)
[2018-10-17] MEDS: Heparin Sod 5,000Units/ML 5,000 UNITS/ML VIAL SUBQ SCH (08:59)
[2018-10-17] MEDS: Insulin Glargine 100 units/ml 10ml Vial SUBQ SCH (08:59)
[2018-10-17] MEDS: Venelex 60gm Tube TP SCH (09:13)
== END 2018-10-17 15:40 | DRG 593 ==
LOC: MSI 17:34
PROVIDERS: ADMIT Internal Medicine; ATTEND Internal Medicine
DX: L89.613 Pressure ulcer of right heel, stage 3 (principal); E44.1 Mild protein-calorie malnutrition; D72.829 Elevated white blood cell count, unspecified; E11.9 Type 2 diabetes mellitus without complications; J44.9 Chronic obstructive pulmonary disease, unspecified; F03.90 Unspecified dementia, unspecified severity, without behavioral disturbance, psychotic disturbance, mood disturbance, and anxiety; Z79.4 Long term (current) use of insulin; Z68.25 Body mass index [BMI] 25.0-25.9, adult
CPT/HCPCS: 36415-UA; 80053-TC; 82948-90; 84443-TC; 85025-TC; 93926-RT-TC; 93971-TC-RT; J1644; J1815; J2543; J7030; J7799